=== PATIENT | male | born 1930 | race Caucasian/White ===

== ENCOUNTER 2018-01-07 10:03 | Inpatient (IN) | payer MEDICARE ==
[2018-01-07] MEDS ORDERED: ACETAMINOPHEN TAB 325 MG TAB PO PRN (12:21)
[2018-01-07] MEDS ORDERED: NALOXONE 0.4 MG/ML 1 ML VIAL IV PRN (12:21)
[2018-01-07 12:26] LABS: Glucose,Whole Blood 100 mg/dL (75-99)
[2018-01-07] MEDS: traMADol 50 MG TAB PO PRN ×2 (12:42→20:40)
--- NOTE | 2018-01-07 13:05 | XR ---
EXAMINATION TYPE: XR chest 1V portable DATE OF EXAM: 01/07/2018 COMPARISON: NONE HISTORY: Congestive heart failure and atrial fibrillation. Chest pain. TECHNIQUE: Single frontal view of the chest is obtained. FINDINGS: There is no focal air space opacity, pleural effusion, or pneumothorax seen. Skinfold is s een over the right lateral thorax as lung markings are seen peripheral to this. Mediastinal rotation to the right is evident as there is patient rotation/suboptimal positioning. There are overall low bruce ng volumes. The cardiac silhouette size is within normal limits. The osseous structures are intact . There is diffuse osseous demineralization present. IMPRESSION: No acute cardiopulmonary process. No evidence of decompensated congestive heart failure. Overall low lung volumes.
--- NOTE | 2018-01-07 13:10 | HP ---
HISTORY AND PHYSICAL CHIEF COMPLAINT: Chief complaints are elevated troponin and as well as a change in mental status. HISTORY OF PRESENT ILLNESS: This 87-year-old gentleman with the past medical history significant for dementia was evaluated in the outpatient setting, but recently the patient was sent to [facility], suspected for bowel obstruction from [facility], but in [facility] they suspected large prostate and catheter was inserted. Patient also had UTI. Subsequently patient was sent to [facility] for rehab , but from the rehab patient apparently fell and the patient was sent to ER and again the patient again sent back last night with features of UTI. The patient also had some change in mental status and complicated UTI with seizure-like activity according to the chart. Patient was evaluated, chronic cystitis was noted and troponin was found to be 0.024 and 0.133. EKG showed nonspecific ST-T changes and Dr. Flynn from [facility] discussed the case with us directly and the patient was directly transferred to [facility] for further evaluation and treatment. There is no history of any fever, rigors. No history of headache loss of consciousness, or seizures. PAST MEDICAL HISTORY: History of dementia, history of recent UTI and multiple medical issues as described above. MEDICATIONS: Medications prior to admission are: 1. Tylenol. 2. Acidophilus. 3. Aspirin. 4. Bactrim. 5. Bethanechol. 7. Famotidine. 8. Flomax. 9. Memantine. 10.Metoprolol. 11.Milk of magnesia. 12.Senna. Family history, social history and review of systems could not be taken because the patient is confused. PHYSICAL EXAMINATION: Pulse is 83, blood pressure is ntd, temperature 98.4, respirations 16, pulse ox is normal. HEENT: Conjunctivae normal. Oral mucosa moist. Neck is no jugular venous distention. No carotid bruit. No lymph node enlargement. CARDIOVASCULAR: S1, S2 muffled. No S3, no S4. RESPIRATORY: Breath sounds diminished at the bases. A few scattered rhonchi and crackles. Expiratory wheezing also present. ABDOMEN: Soft, nontender. No mass palpable. LEGS: No edema, no swelling. NERVOUS SYSTEM: Higher functions as mentioned earlier. Moves all 4 limbs. Patient is slightly combative and restless, confused, disoriented. LYMPHATICS: No lymphadenopathy of the neck, axillae or groin. SKIN: No ulcer, rash or bleeding. JOINTS: No active deforming arthropathy. LABS: Current labs are not available. ASSESSMENT: 1. Troponin 0.133, rule out acute non ST elevation myocardial infarction with nonspecific ST-T changes. 2. Complicated urinary tract infection. 3. History of benign prostatic hypertrophy and indwelling Chi catheter. 4. History of recent fall. 5. Change in mental status, acute on chronic metabolic encephalopathy. 6. Advanced dementia. 7. FULL CODE. RECOMMENDATIONS AND DISCUSSION: In this 87-year-old gentleman who presented with multiple complex medical issues , we will monitor the patient closely. Continue the current medications. Continue symptomatic treatment. I recommend broad-spectrum IV antibiotics. Obtain cultures. I would also recommend obtain the old records from elsewhere. The prognosis is guarded and Ativan p.r.n. Further recommendations to follow. MMODL / IJN: [id number] / MTDD
[2018-01-07 13:34] LABS: Basophils # (A) 0.1 k/uL (0-0.2); Basophils % (A) 1 %; Eosinophils # (A) 0.3 k/uL (0-0.7); Eosinophils % (A) 2 %; HCT 46.2 % (39.0-53.0); HGB 15.2 gm/dL (13.0-17.5); Lymphocytes # (A) 1.8 k/uL (1.0-4.8); Lymphocytes % (A) 12 %; MCH 29.4 pg (25.0-35.0); MCV 89.2 fL (80.0-100.0); Monocytes # (A) 0.9 k/uL (0-1.0); Monocytes % (A) 6 %; Neutrophils # (A) 11.6 k/uL (1.3-7.7); Neutrophils % (A) 77 %; Platelet Count 279 k/uL (150-450); RBC 5.18 m/uL (4.30-5.90); RDW 14.2 % (11.5-15.5)
[2018-01-07 13:43] LABS: Albumin 3.6 g/dL (3.5-5.0); Calcium 9.5 mg/dL (8.4-10.2); Magnesium 1.9 mg/dL (1.6-2.3); Phosphorus 2.5 mg/dL (2.5-4.5); Potassium 4.2 mmol/L (3.5-5.1); Total Bilirubin 0.4 mg/dL (0.2-1.3); Total Protein 6.4 g/dL (6.3-8.2)
[2018-01-07] MEDS ORDERED: MORPHINE SULFATE 2 MG/ML SYRINGE IVP ONE (13:48)
[2018-01-07] MEDS ORDERED: LORazepam 2 MG/ML INJ IV PRN (14:25)
[2018-01-07] MEDS ORDERED: LORazepam 0.5 MG TAB PO PRN (14:25)
[2018-01-07] MEDS: 1: MVI, ADULT NO.4 WITH VIT K 10 ML, THIAMINE 100 MG, FOLIC ACID 1 MG in SODIUM CHLORIDE IV SCH ×4 (15:05)
[2018-01-07] MEDS: cefTRIAXone IN SWFI 1,000 MG/10 ML SYRINGE IVP SCH (15:07)
[2018-01-07] MEDS: HEPARIN SODIUM,PORCINE 5,000 UNIT/ML 1 ML VIAL SQ SCH ×2 (15:07→20:41)
[2018-01-07 15:45] LABS: Creatine Kinase MB 3.1 ng/mL (0.0-2.4); Troponin I 0.275 ng/mL (0.000-0.034)
[2018-01-07] MEDS ORDERED: MORPHINE SULFATE 2 MG/ML SYRINGE IVP PRN (15:45)
--- NOTE | 2018-01-07 16:52 | P.GSCN ---
History of Present Illness Consult date: 01/07/18 Reason for Consult: Urinary retention History of present illness: The patient is an 87-year-old male with Noted seen to pull on his catheter periodicallyAlzheimer's disease who was transferred from the [facility] emergency room due to possible sepsis related to the patient's catheter. The history is from a discussion with the patient's family and his nurse. The patient is unable to provide any meaningful history. The patient developed a bowel obstruction apparently related to fecal impaction in early December and was initially treated at [facility]. He developed urinary retention at that time and a catheter was inserted. He was eventually discharged to the [facility] rehab facility with a catheter in place and has he remained unable to void. The catheter has been changed at least once or twice since then. He has been pulling on his catheter periodically. Sometime over the last 24 hours he developed vomiting and what is described as seizure-like activity. He had a low-grade fever and was taken to the emergency room where he was evaluated and his catheter was changed. He was transferred to this facility for further evaluation. His catheter apparently was not draining well when he arrived here and was removed. Since then he is had intermittent suprapubic discomfort and no urine output. The patient has no previous history of urinary retention. The patient's said he would normally voids every 3-4 hours during the day and only occasionally at night. He had previously been evaluated by Dr. Grover due to an elevated PSA which was related to BPH. TRUS of the prostate in 2010 showed a prostate volume of 95 mL. He has not been seen back since 2011. The patient's says that he normally has a bowel movement daily and currently is having a bowel movement every 2-3 days. She believes that a portion of this is related to a reduced intake of food. He is currently on a stool softener. Review of Systems ROS unobtainable: due to mental status Past Medical History Past Medical History: Dementia Additional Past Medical History / Comment(s): Pt recently admitted to [facility] with a bowel obstruction per spouse and was then told he had prostrate enlargement/cystitis/urinary retention and discharged to [facility] with indwelling dobson and was currently on Bactrim for UTI. Spouse states other than this, pt has been healthy except for his dementia and hx of constipation. History of Any Multi-Drug Resistant Organisms: None Reported Additional Past Surgical History / Comment(s): Spouse states pt has never had any surgery Past Anesthesia/Blood Transfusion Reactions: Unable to Obtain Additional Past Anesthesia/Blood Transfusion Reaction / Comm: Pt has never had surgery. Additional Psychological History / Comment(s): Pt has dementia. He is currently staying at [facility] for rehab after a hospitalization at [facility]. He is up walking with a walker. 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 He has an indwelling dobson d/t urinary retention. He can sometimes feed himself with alot of redirection. No difficulty swallowing. Recently increased diet to a soft diet and is tolerating that well. Smoking Status: Never smoker Past Alcohol Use History: None Reported Past Drug Use History: None Reported - Past Family History Father Family Medical History: Diabetes Mellitus Mother Family Medical History: No Reported History Medications and Allergies Home Medications Medication Instructions Recorded Confirmed Type Acetaminophen Tab [Tylenol Tab] 650 mg PO Q4H PRN 01/07/18 01/07/18 History Aspirin EC [Ecotrin Low Dose] 81 mg PO DAILY@0700 01/07/18 01/07/18 History Bethanechol [Urecholine] 25 mg PO TID@0700,1200,1700 01/07/18 01/07/18 History Donepezil [Aricept] 5 mg PO HS@199901/07/18 01/07/18 History Famotidine [Pepcid] 20 mg PO BID@0700,1700 01/07/18 01/07/18 History Lactobacillus Acidophilus 1 tab PO BID 01/07/18 01/07/18 History [Acidophilus] Mag Hydrox/Al Hydrox/Simeth 30 ml PO Q6H PRN 01/07/18 01/07/18 History [Maalox] Magnesium Hydroxide [Milk of 2,400 mg PO DAILY PRN 01/07/18 01/07/18 History Magnesia] Memantine [Namenda] 10 mg PO DAILY@2100 01/07/18 01/07/18 History Metoprolol Tartrate [Lopressor] 25 mg PO BID@0700,1700 01/07/18 01/07/18 History Sennosides-Docusate Sodium 1 tab PO DAILY@0800 01/07/18 01/07/18 History [Senokot-S] Sulfamethox-Tmp 800-160Mg [Bactrim 1 tab PO Q12HR 01/07/18 01/07/18 History DS 800-160 mg] Tamsulosin HCl [Flomax] 0.4 mg PO DAILY@0700 01/07/18 01/07/18 History Allergies Allergy/AdvReac Type Severity Reaction Status Date / Time No Known Allergies Allergy Verified 01/07/18 13:40 Surgical - Exam Vital Signs Temp Pulse Resp BP Pulse Ox 96.3 F L 105 H 18 147/87 95 01/07/18 11:20 01/07/18 11:20 01/07/18 11:20 01/07/18 11:20 01/07/18 11:20 - General well developed, well nourished, moderate pain - Respiratory normal respiratory effort - Abdomen Abdomen: tender (Suprapubic region) - Genitourinary normal penis with no external lesions, testicles non-tender - Psychiatric no oriented to time, no oriented to place, no speech is normal, no memory intact Results - Labs 01/07/18 13:20 01/07/18 13:20 Abnormal Lab Results - Last 24 Hours (Table) 01/07/18 01/07/18 01/07/18 Range/Units 12:05 13:20 13:20 WBC 15.0 H (3.8-10.6) k/uL Neutrophils # 11.6 H (1.3-7.7) k/uL Chloride 109 H (98-107) mmol/L Carbon Dioxide 21 L (22-30) mmol/L Glucose 118 H (74-99) mg/dL POC Glucose (mg/dL) 100 H (75-99) mg/dL CK-MB (CK-2) (0.0-2.4) ng/mL Troponin I (0.000-0.034) ng/mL 01/07/18 Range/Units 13:20 WBC (3.8-10.6) k/uL Neutrophils # (1.3-7.7) k/uL Chloride (98-107) mmol/L Carbon Dioxide (22-30) mmol/L Glucose (74-99) mg/dL POC Glucose (mg/dL) (75-99) mg/dL CK-MB (CK-2) 3.1 H* (0.0-2.4) ng/mL Troponin I 0.275 H* (0.000-0.034) ng/mL Diabetes panel 01/07/18 Range/Units 13:20 Sodium 144 (137-145) mmol/L Potassium 4.2 (3.5-5.1) mmol/L Chloride 109 H (98-107) mmol/L Carbon Dioxide 21 L (22-30) mmol/L BUN 16 (9-20) mg/dL Creatinine 1.05 (0.66-1.25) mg/dL Glucose 118 H (74-99) mg/dL Calcium 9.5 (8.4-10.2) mg/dL AST 30 (17-59) U/L ALT 38 (21-72) U/L Alkaline Phosphatase 87 (38-126) U/L Total Protein 6.4 (6.3-8.2) g/dL Albumin 3.6 (3.5-5.0) g/dL Calcium panel 01/07/18 Range/Units 13:20 Calcium 9.5 (8.4-10.2) mg/dL Phosphorus 2.5 (2.5-4.5) mg/dL Albumin 3.6 (3.5-5.0) g/dL Pituitary panel 01/07/18 Range/Units 13:20 Sodium 144 (137-145) mmol/L Potassium 4.2 (3.5-5.1) mmol/L Chloride 109 H (98-107) mmol/L Carbon Dioxide 21 L (22-30) mmol/L BUN 16 (9-20) mg/dL Creatinine 1.05 (0.66-1.25) mg/dL Glucose 118 H (74-99) mg/dL Calcium 9.5 (8.4-10.2) mg/dL Adrenal panel 01/07/18 Range/Units 13:20 Sodium 144 (137-145) mmol/L Potassium 4.2 (3.5-5.1) mmol/L Chloride 109 H (98-107) mmol/L Carbon Dioxide 21 L (22-30) mmol/L BUN 16 (9-20) mg/dL Creatinine 1.05 (0.66-1.25) mg/dL Glucose 118 H (74-99) mg/dL Calcium 9.5 (8.4-10.2) mg/dL Total Bilirubin 0.4 (0.2-1.3) mg/dL AST 30 (17-59) U/L ALT 38 (21-72) U/L Alkaline Phosphatase 87 (38-126) U/L Total Protein 6.4 (6.3-8.2) g/dL Albumin 3.6 (3.5-5.0) g/dL Assessment and Plan (1) Urinary retention due to benign prostatic hyperplasia Narrative/Plan: The patient's urinary retention is most likely in part related to his large prostate although constipation one month ago was probably also a contributory factor. His catheter was not draining properly when he was admitted to this facility. I inserted a 16-German coud catheter without difficulty and a large amount of clear urine has drained. His suprapubic discomfort is greatly diminished. It's unclear whether the patient was actually septic as his urine is relatively clear. His agitation may have been from a distended bladder. The patient will be continued on antibiotics pending results of blood and urine cultures. Dr. Grover has seen the patient in the past and we'll follow-up with him later in the week. Current Visit: Yes Status: Acute Code(s): N40.1 - BENIGN PROSTATIC HYPERPLASIA WITH LOWER URINARY TRACT SYMP; R33.8 - OTHER RETENTION OF URINE SNOMED Code(s): 521343389
[2018-01-07 17:03] LABS: Appearance,Urine Cloudy (Clear); Bilirubin,Urine Negative (Negative); Blood,Urine Large (Negative); Color,Urine Red; Glucose,Urine (UA) Trace (Negative); Ketones,Urine Trace (Negative); Leukocyte Esterase,Urine Large (Negative); Mucus,Urine Many /hpf; Nitrite,Urine Negative (Negative); Protein,Urine 1+ (Negative); RBC,Urine >182 /hpf (0-5); Specific Gravity,Urine 1.019 (1.001-1.035); Urobilinogen,Urine <2.0 mg/dL (<2.0); WBC,Urine >182 /hpf (0-5)
--- NOTE | 2018-01-07 18:01 | CONS ---
CONSULTATION This is an 87-year-old gentleman with a significant history of dementia who was transferred here from [facility]. Apparently patient was in [facility] recently for bowel obstruction and also had some prostate issues and had a catheter placed. There was a question of UTI and he was sent to the [facility] for rehab, but then he fell in rehab, was sent to the emergency room, was complaining of some chest pain and jerking activity all over, raising the possibility of seizures. There was a question of UTI and borderline troponin elevation of 0.02 and 0.13, and therefore he was transferred here. Patient is unable to give me any meaningful history. There is a lot of family around. Apparently the catheter was taken out from his bladder and he is complaining of some pain in this region. Denies chest pain. He is hemodynamically stable. Blood pressure is 140/70. Pulse rate is about 90 per minute. EKG revealed sinus mechanism, LVH by voltage criteria without acute changes. PAST MEDICAL HISTORY: 1. Dementia. 2. History of UTI. 3. History of some metabolic encephalopathy. 4. Benign prostatic hypertrophy. 5. Possible history of hypertension. MEDICATIONS PRIOR TO ADMISSION: 1. Aspirin. 2. Bactrim. 3. Tylenol. 4. Flomax. 5. Metoprolol. 6. Milk of Magnesia. 7. Senna. PHYSICAL EXAMINATION: Blood pressure is 140/70. Pulse rate is about 93 per minute, regular. HEENT: Unremarkable. Fundus was not examined by me. NECK: Supple. No JVD. I do not hear a carotid bruit. Heart exam reveals S1, S2. Short systolic murmur is noted. Lungs reveal diminished air entry. Abdomen is soft. Lower extremities reveal diminished pulses. No edema. Central nervous system assessment was not performed. Patient is restless, moving all 4 extremities, but a detailed exam was not performed. Apparently patient was seen by a roof bolter in [facility] by and his nurse practitioner, and his LV function was apparently normal. IMPRESSION: 1. Borderline troponin elevation, not suggestive of myocardial infarction. 2. Dementia. 3. Urinary tract infection. 4. Benign prostatic hypertrophy. RECOMMENDATIONS: I am recommending that we add a beta jarret to his regimen. No other intervention is necessary. Apparently the echo is normal. Conservative management is advised. I will see the patient as needed. Thank you very much for the consult. GUTIERREZ / LATHAN: [id number] /
[2018-01-07] MEDS: risperiDONE 0.25 MG TAB PO SCH (20:39)
[2018-01-07] MEDS: METOPROLOL TARTRATE 50 MG TAB PO SCH (20:40)
[2018-01-07 23:01] LABS: Creatine Kinase MB 3.5 ng/mL (0.0-2.4); Troponin I 0.633 ng/mL (0.000-0.034)
[2018-01-07] MEDS ORDERED: SODIUM CHLORIDE 0.9% 500 ML IV ONE (23:08)
[2018-01-08] MEDS ORDERED: NOREPINEPHRIN 4 MG-0.9% NS PMX 4 MG/250 ML ML IV ONE (00:56)
[2018-01-08 01:10] LABS: Glucose,Whole Blood 132 mg/dL (75-99)
[2018-01-08] MEDS ORDERED: SODIUM CHLORIDE 0.9% 3,000 ML IV ONE (01:28)
[2018-01-08] MEDS ORDERED: NOREPINEPHRIN 4 MG-0.9% NS PMX 4 MG/250 ML ML IV SCH (01:30)
[2018-01-08 05:20] LABS: Basophils # (A) 0.1 k/uL (0-0.2); Basophils % (A) 1 %; Eosinophils # (A) 0.4 k/uL (0-0.7); Eosinophils % (A) 4 %; HGB 13.9 gm/dL (13.0-17.5); Hypochromasia Marked; Lymphocytes % (A) 25 %; MCH 30.2 pg (25.0-35.0); MCHC 31.5 g/dL (31.0-37.0); Mean Platelet Volume 7.2; Monocytes # (A) 1.1 k/uL (0-1.0); Monocytes % (A) 9 %; Neutrophils # (A) 6.8 k/uL (1.3-7.7); Neutrophils % (A) 57 %; Platelet Count 270 k/uL (150-450); RBC 4.59 m/uL (4.30-5.90); RDW 14.1 % (11.5-15.5)
[2018-01-08 05:22] LABS: MCV 95.9 fL (80.0-100.0)
[2018-01-08 05:37] LABS: Anion Gap 11 mmol/L; Blood Urea Nitrogen 14 mg/dL (9-20); Calcium 8.3 mg/dL (8.4-10.2); Carbon Dioxide 20 mmol/L (22-30); Chloride 113 mmol/L (98-107); Glucose 116 mg/dL (74-99); Magnesium 1.9 mg/dL (1.6-2.3); Phosphorus 3.3 mg/dL (2.5-4.5); Sodium 144 mmol/L (137-145)
--- NOTE | 2018-01-08 07:15 | CT ---
EXAM: CT Head Without Intravenous Contrast CLINICAL HISTORY: ITS.REASON CT Reason: fall TECHNIQUE: Axial computed tomography images of the head/brain without intravenous contrast. DLP is 1144.7 mGy-cm. This CT exam was performed using one or more of the following dose reduction techniques: automated exposure control, adjustment of the mA and/or kV according to patient size, and/or use of iterative reconstruction technique. COMPARISON: None. FINDINGS: Brain: Moderate global volume loss, more prominent symmetrically in the parietal and temporal lobes. No evidence of acute intracranial hemorrhage. No mass effect or herniation. Ventricles: Unremarkable. No ventriculomegaly. Bones/joints: No acute fracture. Soft tissues: Unremarkable. Sinuses: Unremarkable as visualized. Mastoid air cells: Unremarkable as visualized. IMPRESSION: No evidence of acute intracranial hemorrhage or skull fracture. Moderate global volume loss, more prominent symmetrically in the parietal and temporal lobes.
[2018-01-08] MEDS: cefTRIAXone IN SWFI 1,000 MG/10 ML SYRINGE IVP SCH (09:57)
[2018-01-08] MEDS: HEPARIN SODIUM,PORCINE 5,000 UNIT/ML 1 ML VIAL SQ SCH ×2 (09:57→20:52)
[2018-01-08] MEDS: PANTOPRAZOLE 40 MG TABLET PO SCH (09:58)
--- NOTE | 2018-01-08 10:37 | P.CNPUL ---
History of Present Illness Consult date: 01/08/18 Requesting physician: Roselia Vo Reason for consult: other (Hypertension) Chief complaint: Altered mental status History of present illness: This is an 87-year-old white male with history of dementia, chronic and recurrent urinary tract infection, transferred from [facility] due to possible sepsis and urinary tract infection. Patient cannot give any history, patient has profound dementia, however most of the information was obtained from the chart. Back in December, patient developed a bowel obstruction, and he was treated at [facility]. He also developed while inpatient urinary retention, and a Dobson catheter was placed. Patient was discharged to [facility] rehab facility, continued to have catheter in place, and he could not void on his own. His catheter was being changed periodically. When he 4 hours prior to admission, patient developed vomiting and what seems to be a seizure-like activity. He also had a low-grade fever, seen at [facility], and arrangements were made for him to be transferred to [facility]. Patient was a direct transfer, and while on the floor last night, patient became hypotensive, required fluid boluses, and he was transferred to the ICU. I was called about the patient, recommended norepinephrine to be started after a liter of fluid bolus, patient remains on norepinephrine for almost 8 hours, and this was discontinued early this morning. His urinalysis is suspicious for urinary tract infection, and considering the presentation I believe this is sepsis, septic shock secondary to urinary tract infection. I saw the patient this morning, he is hemodynamically stable, afebrile, in no form of respiratory distress. Cultures are pending including urine and blood. WBC count is 12 his electrolytes are normal renal profile is normal slightly elevated troponin is noted, patient was already seen by cardiology, felt that the patient may have had a non-ST elevation myocardial infarction, and recommended low-dose beta blockers, did not recommend any other intervention. Chest x-ray on admission was relatively unremarkable and no evidence of pneumonia and no evidence of congestive heart failure. Patient fell out of bed early this morning, and a CT of the brain was done, no significant abnormality was noted. Review of Systems ROS unobtainable: due to mental status (Patient has profound Alzheimer's disease , has no clue where he is or how he ended up in our facility.) Past Medical History Past Medical History: Dementia Additional Past Medical History / Comment(s): Pt recently admitted to [facility] with a bowel obstruction per spouse and was then told he had prostrate enlargement/cystitis/urinary retention and discharged to [facility] with indwelling dobson and was currently on Bactrim for UTI. Spouse states other than this, pt has been healthy except for his dementia and hx of constipation. History of Any Multi-Drug Resistant Organisms: None Reported Additional Past Surgical History / Comment(s): Spouse states pt has never had any surgery Past Anesthesia/Blood Transfusion Reactions: Unable to Obtain Additional Past Anesthesia/Blood Transfusion Reaction / Comment(s): Pt has never had surgery. Additional Psychological History / Comment(s): Pt has dementia. He is currently staying at [facility] for rehab after a hospitalization at [facility]. He is up walking with a walker. 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 He has an indwelling dobson d/t urinary retention. He can sometimes feed himself with alot of redirection. No difficulty swallowing. Recently increased diet to a soft diet and is tolerating that well. Smoking Status: Never smoker Past Alcohol Use History: None Reported Past Drug Use History: None Reported - Past Family History Father Family Medical History: Diabetes Mellitus Mother Family Medical History: No Reported History Medications and Allergies Home Medications Medication Instructions Recorded Confirmed Type Acetaminophen Tab [Tylenol Tab] 650 mg PO Q4H PRN 01/07/18 01/07/18 History Aspirin EC [Ecotrin Low Dose] 81 mg PO DAILY@0700 01/07/18 01/07/18 History Bethanechol [Urecholine] 25 mg PO TID@0700,1200,1700 01/07/18 01/07/18 History Donepezil [Aricept] 5 mg PO HS@2000 01/07/18 01/07/18 History Famotidine [Pepcid] 20 mg PO BID@0700,1700 01/07/18 01/07/18 History Lactobacillus Acidophilus 1 tab PO BID 01/07/18 01/07/18 History [Acidophilus] Mag Hydrox/Al Hydrox/Simeth 30 ml PO Q6H PRN 01/07/18 01/07/18 History [Maalox] Magnesium Hydroxide [Milk of 2,400 mg PO DAILY PRN 01/07/18 01/07/18 History Magnesia] Memantine [Namenda] 10 mg PO DAILY@2100 01/07/18 01/07/18 History Metoprolol Tartrate [Lopressor] 25 mg PO BID@0700,1700 01/07/18 01/07/18 History Sennosides-Docusate Sodium 1 tab PO DAILY@0800 01/07/18 01/07/18 History [Senokot-S] Sulfamethox-Tmp 800-160Mg [Bactrim 1 tab PO Q12HR 01/07/18 01/07/18 History DS 800-160 mg] Tamsulosin HCl [Flomax] 0.4 mg PO DAILY@0700 01/07/18 01/07/18 History Allergies Allergy/AdvReac Type Severity Reaction Status Date / Time No Known Allergies Allergy Verified 01/07/18 13:40 Physical Exam Vitals: Vital Signs Temp Pulse Pulse Pulse Resp BP BP 01/08/18 06:00 72 18 121/77 01/08/18 05:30 63 11 L 107/65 01/08/18 05:00 61 10 L 121/71 01/08/18 04:30 59 L 16 107/70 01/08/18 04:00 98 F 64 86 70 27 H 118/62 01/08/18 03:30 61 16 90/54 01/08/18 03:00 61 14 97/56 01/08/18 02:30 61 12 111/66 01/08/18 02:00 62 21 78/52 01/08/18 01:30 98.1 F 65 19 84/48 01/07/18 23:57 89/50 01/07/18 23:12 70 75/43 01/07/18 22:27 90/54 01/07/18 20:00 97.1 F L 88 18 123/70 01/07/18 16:00 98 F 86 16 138/84 01/07/18 12:21 01/07/18 11:20 96.3 F L 105 H 18 147/87 Pulse Ox 01/08/18 06:00 96 01/08/18 05:30 98 01/08/18 05:00 98 01/08/18 04:30 96 01/08/18 04:00 97 01/08/18 03:30 95 01/08/18 03:00 100 06/07/18 02:30 96 01/08/18 02:00 95 01/08/18 01:30 93 L 01/07/18 23:57 01/07/18 23:12 01/07/18 22:27 01/07/18 20:00 94 L 01/07/18 16:00 96 01/07/18 12:21 96 01/07/18 11:20 95 Intake and Output 01/07/18 01/08/18 01/08/18 22:59 06:59 14:59 Intake Total 520 566.50 Output Total 500 150 Balance 20 416.50 Intake: IV 400 450 Mvi, Adult No.4 with Vit 400 250 K 10 ml Thiamine 100 mg Folic Acid 1 mg In Sodium Chloride 0.9% 1,000 ml @ 50 mls/hr IV .BY DURATION VERONICA Rx#: [id number] Sodium Chloride 0.9% 1, 200 000 ml @ 100 mls/hr IV . BY DURATION VERONICA Rx#: [id number] Intake, IV Titration 116.50 Amount Norepinephrin 4 mg-0.9% 116.50 Ns Pmx 4 mg In 250 ml @ Titrate IV .Q0M VERONICA Rx#: [id number] Oral 120 Output: Urine 500 150 Other: Voiding Method Indwelling Catheter Indwelling Catheter # Bowel Movements 1 Physical Exam: Revealed an 87-year-old white male, in no form of respiratory distress. Head: Atraumatic, normocephalic. HEENT:[Neck is supple.] [No neck masses.] [No thyromegaly.] [No JVD.]. PERRLA, EOMI, no icterus. Moist mucous membranes. Chest: [Clear throughout, no crackles, no rhonchi, no wheezes.] Cardiac Exam: [Normal S1 and S2, no S3 gallop, no murmur.] Abdomen: [Soft, nontender, no megaly, no rebound, no guarding, normal bowel sounds.] Extremities: [No clubbing, no edema, no cyanosis.] Neurological Exam: Confused, has profound dementia, otherwise no other focal neurologic deficit. Lymphatics: No lymphadenopathy. Musculoskeletal normal range of motion, no deformities. Results - Laboratory Findings CBC and BMP: 01/08/18 04:54 01/08/18 04:54 Abnormal lab findings: Abnormal Labs 01/07/18 01/07/18 01/07/18 12:05 13:20 13:20 WBC 15.0 H Neutrophils # 11.6 H Monocytes # Chloride 109 H Carbon Dioxide 21 L Glucose 118 H POC Glucose (mg/dL) 100 H Calcium CK-MB (CK-2) Troponin I Urine Protein Urine Glucose (UA) Urine Ketones Urine Blood Ur Leukocyte Esterase Urine RBC Urine WBC Urine WBC Clumps Urine Mucus 01/07/18 01/07/18 01/07/18 13:20 16:50 22:13 WBC Neutrophils # Monocytes # Chloride Carbon Dioxide Glucose POC Glucose (mg/dL) Calcium CK-MB (CK-2) 3.1 H* 3.5 H* Troponin I 0.275 H* 0.633 H* Urine Protein 1+ H Urine Glucose (UA) Trace H Urine Ketones Trace H Urine Blood Large H Ur Leukocyte Esterase Large H Urine RBC >182 H Urine WBC >182 H Urine WBC Clumps Many H Urine Mucus Many H 01/08/18 01/08/18 01/08/18 01:08 04:54 04:54 WBC 12.0 H Neutrophils # Monocytes # 1.1 H Chloride 113 H Carbon Dioxide 20 L Glucose 116 H POC Glucose (mg/dL) 132 H Calcium 8.3 L CK-MB (CK-2) Troponin I Urine Protein Urine Glucose (UA) Urine Ketones Urine Blood Ur Leukocyte Esterase Urine RBC Urine WBC Urine WBC Clumps Urine Mucus 01/08/18 01/08/18 04:54 06:45 WBC Neutrophils # Monocytes # Chloride Carbon Dioxide Glucose POC Glucose (mg/dL) Calcium CK-MB (CK-2) 3.0 H* Troponin I 0.319 H* Urine Protein Urine Glucose (UA) Urine Ketones Urine Blood Ur Leukocyte Esterase Urine RBC Urine WBC Urine WBC Clumps Urine Mucus - Diagnostic Findings Chest x-ray: image reviewed (Evidence of active disease) Assessment and Plan Assessment: Impression: 1 acute hypotension secondary to sepsis and septic shock secondary to urinary tract infection. 2 acute urinary tract infection 3 acute non-ST elevation myocardial infarction, could also be contributing to his hypotension. 4 advanced senile dementia 5 enlarged prostate and chronic urinary retention requiring Dobson catheter placement. 6 questionable seizure disorder as noted in the HPI. Patient is being followed by neurology. EEG is pending. Recommendation: Continue present supportive care measures, fluids, antibiotics, GI and DVT prophylaxis. Blood cultures are pending, urine cultures are pending , antibiotics will be readjusted based on the final culture. Time with Patient: Greater than 30
--- NOTE | 2018-01-08 11:14 | PN ---
PROGRESS NOTE Mr. Mcgraw remains in sinus rhythm today. He came in because of some sepsis and UTI, unresponsiveness, and also pain because of a bladder catheter. There was a question of Naila nick, but on reviewing the rhythm strips appears to be sinus tachycardia. He became hypotensive after 50 mg dose of Lopressor, I am reducing it to 12.5 mg t.i.d. with parameters . He is hemodynamically stable, comfortable resting without pain. S1-S2 heard normally, short systolic murmur noted. Lungs are clear. Abdomen is soft. Lower extremities reveal diminished pulses. Plan is to continue current medications and see how he does. MMODL / IJN: [id number] / MTDD
--- NOTE | 2018-01-08 12:53 | CONS ---
CONSULTATION DATE OF SERVICE: 01/07/2018 CHIEF COMPLAINT: Altered mental status. HISTORY OF PRESENT ILLNESS: Mr. Mcgraw is a pleasant 87-year-old, male, who is being evaluated by the neurology service today on 01/07/2018 per the request of Dr. Vo for altered mental status. The patient was brought into [facility] with complaints of change in mental status and complicated urinary tract infection. The patient is a poor historian. The history was obtained from the chart and the nursing staff. The patient was initially seen at [facility] for suspected bowel obstruction. His workup revealed a large prostate gland and a urinary tract infection. He was then sent to rehab where he apparently had a fall and questionable seizure-like activity. According to nursing staff, the patient was having tremors with no altered consciousness during this episode. A CBC was done which did show leukocytosis at 15.0. His comprehensive metabolic profile was normal. His urinalysis showed greater than 182 WBCs and large leukocyte esterase. There was also hematuria seen. His cardiac enzymes showed elevated troponin at 0.275 and elevated CK-MB at 3.1. His CPK was normal. At the time of my evaluation, he is lying in his bed and appears to be in no acute distress. He is quite disoriented but the patient does have history of advanced dementia according to the chart and the nursing staff. His exact baseline is unknown. PAST MEDICAL HISTORY: Dementia, recurrent urinary tract infections, gastroesophageal reflux disease, prostate disorder. SOCIAL HISTORY: There is no history of any tobacco, alcohol, or drug use. FAMILY HISTORY: Noncontributory. HOME MEDICATIONS: Reviewed in the chart. ALLERGIES: No known drug allergies. REVIEW OF SYSTEM: Per history of present illness and otherwise negative. PHYSICAL EXAM: Vital signs show a temperature of 96.3, pulse 105, respiration 18, blood pressure 147/87. GENERAL APPEARANCE: The patient is a well-developed, elderly male, who appears to be in no acute distress. HEENT: Normocephalic, atraumatic, no facial asymmetry is seen. NECK: Supple with no masses felt. CARDIOVASCULAR: Regular rate and rhythm. ABDOMEN: Nontender, nondistended. EXTREMITIES: Showed trace edema with no clubbing seen. NEUROLOGICAL EXAM: The patient is awake, but is disoriented to person, place, and time. He does follow simple commands. No obvious lateralizing weakness is seen but he does appear to have generalized weakness. Sensory exam was difficult to assess due to his cognitive status. Mild postural tremors are seen. No seizure-like activity is noticed. No obvious facial asymmetry is seen on cranial nerve testing. IMPRESSION: 1. Altered mental status. 2. Acute on top of chronic encephalopathy. 3. Advanced dementia. 4. Questionable seizure. 5. Urinary tract infection. RECOMMENDATION: The patient does have history of advanced dementia and is quite disoriented. His exact baseline is unknown. His current urinary tract infection is obviously causing an acute on top of chronic encephalopathy. He does not have any lateralizing symptoms on my examination. Continue antibiotic therapy. I do recommend an EEG which has been ordered. Cardiology has been consulted for his elevated cardiac enzymes. Prognosis is guarded. I will continue to follow with you. Further recommendations to follow. Thank you for allowing me to participate in the care of your patient. If you have any questions, please feel free to contact me. GUTIERREZ / ABNER: [id number] /
--- NOTE | 2018-01-08 13:05 | ECHOF ---
Referral Reason:LV function MEASUREMENTS -------- HEIGHT: 152.4 cm WEIGHT: 68.0 kg BP: IVSd: 1.3 cm (0.6 - 1.1) LVIDd: 4.2 cm (3.9 - 5.3) LVPWd: 1.5 cm (0.6 - 1.1) IVSs: 1.6 cm LVIDs: 2.6 cm LVPWs: 1.1 cm Ao Diam: 3.5 cm (2.0 - 3.7) LA Diam: 4.2 cm (2.7 - 3.8) MV EXCURSION: 27.202 mm (> 18.000) MV EF SLOPE: 151 mm/s (70 - 150) EPSS: 0.3 cm MV E Osmany: 0.64 m/s MV DecT: 175 ms MV A Osmany: 0.67 m/s MV E/A Ratio: 0.97 RAP: 5.00 mmHg RVSP: 19.81 mmHg FINDINGS -------- Sinus rhythm. This was a technically adequate study. The left ventricular size is normal. There is mild concentric left ventricular hypertrophy. Overa ll left ventricular systolic function is low-normal with, an EF between 50 - 55 %. The right ventricle is normal in size. The left atrial size is normal. The right atrial size is normal. There is mild aortic valve sclerosis. Trace to mild aortic regurgitation. Mild mitral annular calcification present. Mild mitral regurgitation is present. Mild tricuspid regurgitation present. There is no evidence of pulmonary hypertension. The right v entricular systolic pressure, as measured by Doppler, is 19.81mmHg. The pulmonic valve was not well visualized. The aortic root size is normal. Echo free space represents a pericardial fat pad. CONCLUSIONS -------- 1. Sinus rhythm. 2. The left ventricular size is normal. 3. There is mild concentric left ventricular hypertrophy. 4. Overall left ventricular systolic function is low-normal with, an EF between 50 - 55 %. 5. The right ventricle is normal in size. 6. The left atrial size is normal. 7. The right atrial size is normal. 8. There is mild aortic valve sclerosis. 9. Trace to mild aortic regurgitation. 10. Mild mitral annular calcification present. 11. Mild mitral regurgitation is present. 12. Mild tricuspid regurgitation present. 13. There is no evidence of pulmonary hypertension. 14. The right ventricular systolic pressure, as measured by Doppler, is 19.81mmHg. 15. The pulmonic valve was not well visualized. 16. The aortic root size is normal. 17. Echo free space represents a pericardial fat pad. HEARING CARE PRACTITIONER: Michelle Jose RDCS
[2018-01-08] MEDS ORDERED: MAGNESIUM HYDROXIDE 2,400 MG/10 ML CUP PO PRN (14:10)
[2018-01-08] MEDS ORDERED: MAG HYDROX/AL HYDROX/SIMETH 30 ML CUP PO PRN (14:10)
--- NOTE | 2018-01-08 14:23 | EEG ---
ELECTROENCEPHALOGRAM REPORT DATE OF SERVICE: 01/08/2018 REASON FOR TESTING: Altered mental status. DESCRIPTION OF THE PROCEDURE: This EEG was performed using a 21 channel digital electroencephalograph, following international 10-20 system. DESCRIPTION OF THE RECORDING: From the beginning of the tracing, and with the patient's eyes closed, the background rhythm was mostly consisting of 6-7 Hz theta frequency in the posterior occipital leads. No obvious asymmetry is seen. Occasional movement and muscle artifacts are seen. Photic stimulation was performed with no driving response seen. No pathological waves were elicited. Hyperventilation was not performed. The patient remains awake throughout the tracing. No epileptiform discharges were seen. His EKG lead showed an irregular rhythm with a normal rate. INTERPRETATION: This awake EEG is abnormal due to the presence of generalized slowing of the background rhythm, mostly in the theta range. This is consistent with moderate encephalopathy. No epileptiform discharges were seen. The absence of epileptiform discharges does not rule out the diagnosis of epilepsy; therefore, clinical correlation is recommended. Of note, his EKG lead showed an irregularly irregular rhythm. MMROSIOL / LATHAN: [id number] /
--- NOTE | 2018-01-08 14:44 | CDI ---
Last Revision, July 2017 Documentation Clarification Form Date: 01/08/18 From: Shabnam Aceves RN Admit Date: 01/07/2018 11:49:00 AM Patient Name: Ton Mcgraw Visit Number: [id number] ATTENTION: The Clinical Documentation Specialists (CDI) and [facility] Coding Staff appreciate your assistance in clarifying documentation. Please respond to the clarification below the line at the bottom and electronically sign. The CDI & [facility] Coding staff will review the response and follow-up if needed. Please note: Queries are made part of the Legal Health Record. If you have any questions, please contact the author of this message via ITS. Dr. Roselia Vo, A diagnosis of UTI has been documented in the chart on 01/07 & 01/08. History/Risk factors: dementia, recurring UTI, falls, seizure like activity, chronic cystitis, BPH, urinary retention Clinical Indicators: Urinalysis:protein 1+, blood large, ketones trace, leukocyte esterase large, RBC >182, WBC >182, WBC clumps many, mucus many Urine culture: in progress Lab results: on admission WBC 15.0, NEUTRO 11.6, CHL 109, C02 21 Treatment: IVP Rocephin In your professional opinion, can you please clarify the etiology of the UTI, if known? Chi catheter UTI not related to catheter/urostomy Other condition, please specify Unable to determine If an infective organism is present, please specify cause and effect relationship if applicable. Please continue to document in your progress notes and discharge summary in order to capture severity of illness and risk of mortality. Include clinical findings that support your diagnosis. Chi catheter MTDD
--- NOTE | 2018-01-08 15:05 | PN ---
PROGRESS NOTE DATE OF SERVICE: 01/08/2018 This 87-year-old gentleman who was admitted with change in mental status, elevated troponin also. The patient also had a complicated UTI and patient had some difficulty micturition. Patient had indwelling Chi catheter for BPH inserted in [facility] in [place], but the patient apparently is tugging on it and yesterday had difficulties re- inserting and because of urinary retention, Dr. Valente performed a Coude catheter insertion. This morning the patient is confused but feeling much better. The pain is also better but however overnight the patient had hypotension and had to be transferred to ICU for IV fluids and as well as norepinephrine. The patient being closely monitored. PAST MEDICAL HISTORY: Reviewed. REVIEW OF SYSTEMS: Could not be taken. The patient has significant dementia, mostly temporoparietal dementia. CURRENT MEDICATIONS: 1. Include Tylenol 650 q.6h p.r.n. 2. Rocephin 1 g daily. 3. Heparin 5000 subcu b.i.d. 4. Ativan 0.5 mg p.r.n. 5. Melatonin 3 mg p.o. q.h.s. 6. Lopressor 12.5 mg b.i.d. 7. Narcan 0.2 q.2h p.r.n. 8. Levophed drip. 9. Risperdal 0.5 mg q.h.s. 10.Protonix. 11.Multivitamins. PHYSICAL EXAM: Patient is conscious, confused. Pulse 74, blood pressure 90/60, respiration 13, temperature 97.4, pulse ox 100% on room air. HEENT: Conjunctivae normal. Oral mucosa moist. Neck is no jugular venous distention. No carotid bruit. No lymph node enlargement. CARDIOVASCULAR: S1, S2. RESPIRATORY: Breath sounds diminished in the bases. A few scattered rhonchi and crackles. ABDOMEN: Soft, nontender. LEGS: No edema. NERVOUS SYSTEM: Diffusely weak. LABS: WBC 12, hemoglobin 13.9, sodium 142, potassium 5, glucose 116 and CK-MB 3 and the troponin went up to 0.63. ASSESSMENT: 1. Troponin 0.633, possible acute non ST-segment elevation myocardial infarction with nonspecific ST-T changes and hypotension. 2. Complicated urinary tract infection. 3. Change in mental status, metabolic encephalopathy, acute on chronic. 4. Possible early sepsis. 5. History of benign prostatic hypertrophy with indwelling Chi catheter with difficulties in re-insertion with possible trauma, status post coude catheter insertion. 6. History of recent fall. 7. Advanced dementia possibly temporoparietal. 8. Increased WBC. 9. FULL CODE. RECOMMENDATIONS AND DISCUSSION: This 87-year-old gentleman who presented with multiple complex medical issues, we will monitor the patient closely. Continue the current management and symptomatic treatment. At this time, I recommend continue with broad-spectrum IV antibiotics. Continue the rest of the medications. Monitor blood pressure closely and PT, OT evaluation, possible ECF rehab. See orders. Closely follow with multiple consultants. Follow the cultures and fall precautions. The prognosis guarded. Discussed with the family at length who understand. Further recommendations to follow. Medication reconciliation has been done. Also we will use the lower dose of metoprolol because of the hypotension. Continue to monitor prognosis. MMODL / IJN: [id number] /
[2018-01-08] MEDS: 1: MVI, ADULT NO.4 WITH VIT K 10 ML, THIAMINE 100 MG, FOLIC ACID 1 MG in SODIUM CHLORIDE IV SCH ×4 (16:09)
[2018-01-08] MEDS: BETHANECHOL 25 MG TAB PO SCH (16:10)
[2018-01-08] MEDS: METOPROLOL TARTRATE 12.5 MG TAB PO SCH ×2 (16:10→22:12)
--- NOTE | 2018-01-08 20:15 | P.PN ---
Subjective Progress Note Date: 01/08/18 Principal diagnosis: altered mental status Neurology is following in an 87-year-old male for altered mental status. Patient was brought to the ED with mental status changes and complicated UTI. Patient is poor historian. Patient was initially seen at [facility] for suspected bowel obstruction. Workup revealed large prostate and urinary tract infection. Patient was transferred to rehabilitation, had a fall and questionable activity consistent with seizure. Per staff/nursing, patient was having tremors with no altered consciousness during the episode. CBC noted leukocytosis, CMP was normal. UA showed greater than 182 WBCs and large leukocyte esterase. Hematuria also seen. Cardiac enzymes showed elevated troponin, elevated CK-MB. CPK was normal. At time of contact, patient was supine in bed, spouse and daughter at the bedside. Patient was AOx1, resting in bed in no acute distress. Patient reportedly began wandering or attempting to exit bed during the nighttime hours last evening. Patient reportedly experienced a fall that was attended to by staff and nursing. Per family and nursing there was no trauma to the head or neck and no residual or increased deficits. Objective - Vital Signs Vital signs: Vital Signs Temp 97.6 F 01/08/18 16:00 Pulse 75 01/08/18 17:00 Resp 16 01/08/18 17:00 BP 110/61 01/08/18 17:00 Pulse Ox 97 01/08/18 17:00 Intake & Output 01/08/18 01/08/18 01/09/18 06:59 18:59 06:59 Intake Total 966.50 600 Output Total 150 815 Balance 816.50 -215 Intake: IV 850 600 Mvi, Adult No.4 with Vit 650 400 K 10 ml Thiamine 100 mg Folic Acid 1 mg In Sodium Chloride 0.9% 1,000 ml @ 50 mls/hr IV .BY DURATION VERONICA Rx#: [id number] Sodium Chloride 0.9% 1, 200 200 000 ml @ 100 mls/hr IV . BY DURATION VERONICA Rx#: [id number] Intake, IV Titration 116.50 Amount Norepinephrin 4 mg-0.9% 116.50 Ns Pmx 4 mg In 250 ml @ Titrate IV .Q0M VERONICA Rx#: [id number] Output: Urine 150 815 Other: Voiding Method Indwelling Catheter Indwelling Catheter - Exam General appearance: Alert & oriented x1, no apparent distress, confused Head: Atraumatic, normocephalic, normal inspection Eyes: PERRLA, EOMI- with notations below Ear, nose and throat: Normal exam, mucous membranes moist Neck: Normal inspection, absent tenderness, lymphadenopathy. Respiratory: No increased work of breathing Cardiovascular: Regular rate, rhythm GI/abdominal:no guarding, no rigidity. Extremities: full range of motion 4 Neurological: Awake but extremely disoriented Not answer questions appropriately but does attempt to answer, follows verbal commands greater than 50% of the time Purposeful movements of all 4 extremities without any noted deficits related to strength or range of motion cranial nerves II through XII intact no lateralizing weakness no seizure activity noted on physical exam visually tracks horizontally, difficult tracking vertically Psychological: Mood and affect appropriate for setting. - Labs CBC & Chem 7: 01/08/18 04:54 01/08/18 04:54 Labs: Abnormal Lab Results - Last 24 Hours (Table) 01/07/18 01/08/18 01/08/18 Range/Units 22:13 01:08 04:54 WBC 12.0 H (3.8-10.6) k/uL Monocytes # 1.1 H (0-1.0) k/uL Chloride (98-107) mmol/L Carbon Dioxide (22-30) mmol/L Glucose (74-99) mg/dL POC Glucose (mg/dL) 132 H (75-99) mg/dL Calcium (8.4-10.2) mg/dL CK-MB (CK-2) 3.5 H* (0.0-2.4) ng/mL Troponin I 0.633 H* (0.000-0.034) ng/mL 01/08/18 01/08/18 01/08/18 Range/Units 04:54 04:54 06:45 WBC (3.8-10.6) k/uL Monocytes # (0-1.0) k/uL Chloride 113 H (98-107) mmol/L Carbon Dioxide 20 L (22-30) mmol/L Glucose 116 H (74-99) mg/dL POC Glucose (mg/dL) (75-99) mg/dL Calcium 8.3 L (8.4-10.2) mg/dL CK-MB (CK-2) 3.0 H* (0.0-2.4) ng/mL Troponin I 0.319 H* (0.000-0.034) ng/mL Microbiology - Last 24 Hours (Table) 01/07/18 13:20 Blood Culture - Preliminary Blood No Growth after 24 hours 01/07/18 23:57 Urine Culture - Preliminary Urine,Catheterized 01/07/18 16:50 Urine Culture - Preliminary Urine,Catheterized Assessment and Plan (1) Altered mental status Current Visit: Yes Status: Acute Code(s): R41.82 - ALTERED MENTAL STATUS, UNSPECIFIED SNOMED Code(s): 007668156 (2) Toxic metabolic encephalopathy Current Visit: Yes Status: Acute Code(s): G92 - TOXIC ENCEPHALOPATHY SNOMED Code(s): 635298916 (3) Dementia Current Visit: Yes Status: Acute Code(s): F03.90 - UNSPECIFIED DEMENTIA WITHOUT BEHAVIORAL DISTURBANCE SNOMED Code(s): 93665578 (4) Risk for falls Current Visit: Yes Status: Acute Code(s): Z91.81 - HISTORY OF FALLING SNOMED Code(s): 423121679 Plan: Patient does have history of advanced dementia and is still quite disoriented. Spouse and daughter note that the patient is not returned to baseline with regard to his dementia status. Continue to correct underling abnormal labs and etiologies. EEG notes moderate encephalopathy. Recommend discontinuing tramadol for this patient. Patient is greater than 60 years old. Questionable status regarding new onset seizure prior to admission and risk for reduced seizure threshold with tramadol use in the elderly is noted. Continue fall precautions, neurological checks per protocol and advise neurology with any negative neurological changes Neurology will continue to follow and provide updates as needed or warranted. Current status: guarded I have discussed the plan of care with the physician prior to implementation and he agrees with the plan as implemented.
[2018-01-08] MEDS: DONEPEZIL 5 MG TAB PO SCH (20:51)
[2018-01-08] MEDS: MEMANTINE 10 MG TAB PO SCH (20:51)
[2018-01-08] MEDS: risperiDONE 0.25 MG TAB PO SCH (20:51)
[2018-01-08] MEDS: LACTOBACILLUS ACIDOPH & BULGAR 1 EACH PACKET PO SCH (20:52)
[2018-01-09] MEDS: 1: MVI, ADULT NO.4 WITH VIT K 10 ML, THIAMINE 100 MG, FOLIC ACID 1 MG in SODIUM CHLORIDE IV SCH ×8 (02:00→21:02)
[2018-01-09 04:32] LABS: Basophils % (A) 0 %; Eosinophils # (A) 0.4 k/uL (0-0.7); Eosinophils % (A) 4 %; HCT 37.5 % (39.0-53.0); HGB 12.3 gm/dL (13.0-17.5); Lymphocytes # (A) 1.7 k/uL (1.0-4.8); Lymphocytes % (A) 18 %; MCH 29.4 pg (25.0-35.0); MCHC 32.8 g/dL (31.0-37.0); Mean Platelet Volume 7.3; Monocytes # (A) 0.6 k/uL (0-1.0); Monocytes % (A) 7 %; Neutrophils # (A) 6.7 k/uL (1.3-7.7); Neutrophils % (A) 69 %; Platelet Count 256 k/uL (150-450); RBC 4.19 m/uL (4.30-5.90); RDW 13.9 % (11.5-15.5); WBC 9.6 k/uL (3.8-10.6)
[2018-01-09 04:34] LABS: MCV 89.5 fL (80.0-100.0)
[2018-01-09 04:41] LABS: Anion Gap 7 mmol/L; Blood Urea Nitrogen 7 mg/dL (9-20); Calcium 8.1 mg/dL (8.4-10.2); Carbon Dioxide 25 mmol/L (22-30); Chloride 107 mmol/L (98-107); Glucose 81 mg/dL (74-99); Magnesium 1.7 mg/dL (1.6-2.3); Phosphorus 2.7 mg/dL (2.5-4.5); Potassium 3.7 mmol/L (3.5-5.1); Sodium 139 mmol/L (137-145)
[2018-01-09] MEDS: BETHANECHOL 25 MG TAB PO SCH ×3 (07:07→16:45)
[2018-01-09] MEDS: PANTOPRAZOLE 40 MG TABLET PO SCH (07:07)
[2018-01-09] MEDS: ASPIRIN 81 MG PO SCH (07:07)
[2018-01-09] MEDS: TAMSULOSIN 0.4 MG CAP.ER.24H PO SCH (07:07)
[2018-01-09] MEDS ORDERED: Magnesium Replacement Protocol 1 EACH MISC MISCELLANE PRN (07:25)
[2018-01-09] MEDS ORDERED: Potassium Replacement Protocol 1 EACH MISC MISCELLANE PRN (07:25)
[2018-01-09] MEDS: MAGNESIUM SULFATE-D5W PMX 1 GM in DEXTROSE/WATER 1 100ML.BAG IVPB SCH ×2 (07:46→09:23)
[2018-01-09] MEDS: cefTRIAXone IN SWFI 1,000 MG/10 ML SYRINGE IVP SCH (07:51)
[2018-01-09] MEDS: SENNOSIDES-DOCUSATE SODIUM 1 EACH TAB PO SCH (07:51)
[2018-01-09] MEDS: LACTOBACILLUS ACIDOPH & BULGAR 1 EACH PACKET PO SCH ×2 (07:52→20:48)
[2018-01-09] MEDS: HEPARIN SODIUM,PORCINE 5,000 UNIT/ML 1 ML VIAL SQ SCH ×2 (07:52→20:49)
[2018-01-09] MEDS: METOPROLOL TARTRATE 12.5 MG TAB PO SCH ×3 (07:52→20:48)
[2018-01-09] MEDS ORDERED: POTASSIUM CHLORIDE ER 20 MEQ TAB.ER PO SCH (08:00)
--- NOTE | 2018-01-09 09:49 | P.PN ---
Subjective Progress Note Date: 01/09/18 Principal diagnosis: Acute sepsis and septic shock secondary to urinary tract infection This is an 87-year-old white male with history of dementia, chronic and recurrent urinary tract infection, transferred from [facility] due to possible sepsis and urinary tract infection. Patient cannot give any history, patient has profound dementia, however most of the information was obtained from the chart. Back in December, patient developed a bowel obstruction, and he was treated at [facility]. He also developed while inpatient urinary retention, and a Chi catheter was placed. Patient was discharged to [facility] rehab facility, continued to have catheter in place, and he could not void on his own. His catheter was being changed periodically. When he 4 hours prior to admission, patient developed vomiting and what seems to be a seizure-like activity. He also had a low-grade fever, seen at [facility], and arrangements were made for him to be transferred to [facility]. Patient was a direct transfer, and while on the floor last night, patient became hypotensive, required fluid boluses, and he was transferred to the ICU. I was called about the patient, recommended norepinephrine to be started after a liter of fluid bolus, patient remains on norepinephrine for almost 8 hours, and this was discontinued early this morning. His urinalysis is suspicious for urinary tract infection, and considering the presentation I believe this is sepsis, septic shock secondary to urinary tract infection. I saw the patient this morning, he is hemodynamically stable, afebrile, in no form of respiratory distress. Cultures are pending including urine and blood. WBC count is 12 his electrolytes are normal renal profile is normal slightly elevated troponin is noted, patient was already seen by cardiology, felt that the patient may have had a non-ST elevation myocardial infarction, and recommended low-dose beta blockers, did not recommend any other intervention. Chest x-ray on admission was relatively unremarkable and no evidence of pneumonia and no evidence of congestive heart failure. Patient fell out of bed early this morning, and a CT of the brain was done, no significant abnormality was noted. Patient was reevaluated today on 01/09/2018, doing well, relatively asymptomatic, hemodynamically stable, continues to have intermittent episodes of atrial fibrillation with RVR. Remains on beta blockers, dose may have to be modified. Patient is asymptomatic, remains confused as baseline. No seizure activity overnight. CBC is relatively normal electrolytes are normal renal profile is normal blood cultures are negative so far. Urine culture is pending. His last lactic acid was 1.0. Patient is off pressors. Not requiring any levo fed at all over the last 24 hours. Objective - Vital Signs Vital signs: Vital Signs Temp 97.9 F 01/09/18 08:00 Pulse 84 01/09/18 08:00 Resp 22 01/09/18 08:00 BP 101/47 01/09/18 08:00 Pulse Ox 94 L 01/09/18 08:00 Intake & Output 01/08/18 01/09/18 01/09/18 18:59 06:59 18:59 Intake Total 1611.2 400 Output Total 815 930 Balance 796.2 -530 Weight 74.2 kg Intake: IV 600 400 Mvi, Adult No.4 with Vit 400 K 10 ml Thiamine 100 mg Folic Acid 1 mg In Sodium Chloride 0.9% 1,000 ml @ 50 mls/hr IV .BY DURATION VERONICA Rx#: [id number] Sodium Chloride 0.9% 1, 200 400 000 ml @ 100 mls/hr IV . BY DURATION VERONICA Rx#: [id number] Intake, IV Titration 1011.2 Amount Mvi, Adult No.4 with Vit 1011.2 K 10 ml Thiamine 100 mg Folic Acid 1 mg In Sodium Chloride 0.9% 1,000 ml @ 50 mls/hr IV .BY DURATION VERONICA Rx#: [id number] Output: Urine 815 930 Other: Voiding Method Indwelling Catheter Indwelling Catheter Indwelling Catheter # Voids 0 - Exam Physical Exam: Revealed an 87-year-old white male, in no form of respiratory distress. Head: Atraumatic, normocephalic. HEENT:[Neck is supple.] [No neck masses.] [No thyromegaly.] [No JVD.]. PERRLA, EOMI, no icterus. Moist mucous membranes. Chest: [Clear throughout, no crackles, no rhonchi, no wheezes.] Cardiac Exam: Irregular irregular rhythm [Normal S1 and S2, no S3 gallop, no murmur.] Abdomen: [Soft, nontender, no megaly, no rebound, no guarding, normal bowel sounds.] Extremities: [No clubbing, no edema, no cyanosis.] Neurological Exam: Confused, has profound dementia, otherwise no other focal neurologic deficit. Lymphatics: No lymphadenopathy. Musculoskeletal normal range of motion, no deformities. - Labs CBC & Chem 7: 01/09/18 04:11 01/09/18 04:11 Labs: Abnormal Lab Results - Last 24 Hours (Table) 01/09/18 01/09/18 Range/Units 04:11 04:11 RBC 4.19 L (4.30-5.90) m/uL Hgb 12.3 L (13.0-17.5) gm/dL Hct 37.5 L (39.0-53.0) % BUN 7 L (9-20) mg/dL Calcium 8.1 L (8.4-10.2) mg/dL Microbiology - Last 24 Hours (Table) 01/07/18 23:52 Blood Culture - Preliminary Blood No Growth after 24 hours 01/07/18 16:50 Urine Culture - Final Urine,Catheterized 01/07/18 13:20 Blood Culture - Preliminary Blood No Growth after 24 hours 01/07/18 23:57 Urine Culture - Preliminary Urine,Catheterized Assessment and Plan Assessment: Impression: 1 acute hypotension secondary to sepsis and septic shock secondary to urinary tract infection. Although the hypotension could also be exacerbated by the fact that the patient was placed on a relatively high dose of beta jarret initially. 2 acute urinary tract infection 3 acute non-ST elevation myocardial infarction, could also be contributing to his hypotension. 4 advanced senile dementia 5 enlarged prostate and chronic urinary retention requiring Chi catheter placement. 6 questionable seizure disorder as noted in the HPI. Patient is being followed by neurology. Recommendation: Continue present supportive care measures, fluids, antibiotics, GI and DVT prophylaxis. Blood cultures are pending, urine cultures are pending , antibiotics will be readjusted based on the final culture. Considering the patient's hemodynamic stability, I will arrange for the patient be transferred to a monitor bed, atrial fibrillation needs to be a bit better controlled no need for ICU at this point. We'll continue to follow. Time with Patient: Less than 30
[2018-01-09] MEDS: DIGOXIN 125 MCG TAB PO SCH (11:00)
--- NOTE | 2018-01-09 11:48 | PN ---
PROGRESS NOTE Ton is an 87-year-old gentleman who is admitted to hospital with UTI, sepsis and unresponsive. Cardiology was consulted because of some issues with possible atrial fibrillation. He was started on Lopressor became somewhat hypotensive and this dose has been reduced to 12.5 t.i.d. He had one other episode of atrial fibrillation, short self-limited run of atrial fibrillation. The patient is currently on metoprolol. I am going to add digoxin to it. He had an echocardiogram that shows normal LV systolic function with mild mitral and tricuspid regurgitation. On exam, comfortable at rest. Vital signs are stable. There is no jugular venous distention. Chest exam reveals good air entry bilaterally. Heart exam reveals first and second heart sounds. No gallop. No murmur. Abdomen is soft. Examination of extremities did not reveal edema. Peripheral pulses are felt. Labs show a hemoglobin of 12.3, platelet count is 256. Potassium is 3.7. Creatinine is 0.7. Troponin was mildly elevated at 0.2, 0.6 and 0.3. ASSESSMENT: Paroxysmal atrial fibrillation. He is currently in sinus rhythm. I will continue the Lopressor and start him on digoxin. Echo shows normal LV function. If he has further episodes of atrial fibrillation and if there are no contraindications, we will consider anticoagulation probably with Eliquis 2.5 b.i.d. MMROSIOL / LATHAN: [id number] /
--- NOTE | 2018-01-09 13:06 | PN ---
PROGRESS NOTE DATE OF SERVICE: 01/09/2018 This 87-year-old gentleman who was admitted with complicated UTI and as well as elevated troponin also had hypotension. This morning, the patient also had burst of atrial fibrillation. The patient continues to be confused. The patient had a catheter changed by Urology. Patient being closely monitored in ICU. Multiple consultants are following the patient closely. PAST MEDICAL HISTORY: Reviewed. REVIEW OF SYSTEM: Could not be taken, the patient is confused. CURRENT MEDICATIONS ARE: Reviewed and include medications are: 1. Tylenol p.r.n. 2. Maalox p.r.n. 3. Aspirin 81 mg daily. 4. Bethanechol 25 mg t.i.d. 5. Rocephin 1000 mg 24 hours. 6. Lanoxin 125 mcg. 7. Aricept 5 mg q.h.s. 8. Heparin. 9. Lactinex. 10.Ativan p.r.n. 11.Melatonin. 13.Lopressor. 14.Replacement protocols. 15.Protonix. 16.Senokot. 17.Flomax. 18.Ultram. PHYSICAL EXAM: GENERAL: Patient is conscious but confused. VITAL SIGNS: Pulse 79, blood pressure 94/62, respiration 24, temperature 98.1, pulse ox 97% on room air. HEENT is conjunctivae normal. Oral mucosa moist. NECK is no jugular venous distention. No carotid bruit. No lymph node enlargement. CARDIOVASCULAR system: S1, S2 muffled. No S3, no S4. RESPIRATORY: Breath sounds diminished in the bases. A few scattered rhonchi and crackles. ABDOMEN: Soft, nontender. No mass palpable. LEGS: No edema and no swelling. NERVOUS SYSTEM: Higher functions as mentioned earlier. Moves all 4 limbs. Mild diffuse weakness present. No wasting. LYMPHATICS: No lymph nodes palpable in the neck, axillae or groin. SKIN: No ulcer, rash or bleeding. LABS: At this time shows WBC 9.2, hemoglobin 12.2, sodium 139, potassium 3.7, and calcium is 8.1, and troponin 0.319. ASSESSMENT: 1. Acute non ST-segment elevation myocardial infarction with nonspecific ST-T changes and hypotension with troponin 0.633. 2. Atrial fibrillation proximal. 3. Complicated urinary tract infection related to Chi catheter. 4. Urinary obstruction, status post Chi catheter change. 5. Change in mental status metabolic encephalopathy, acute on chronic. 6. Possibly sepsis present on admission. 7. History of benign prostatic hypertrophy with indwelling Chi catheter with difficulty of reinsertion with possible trauma status post coude catheter insertion. 8. History of recent fall. 9. Advanced dementia possibly temporoparietal. 10.Increased WBC. 11.FULL CODE. 12.Gait dysfunction. RECOMMENDATIONS AND DISCUSSION: In this 87-year-old gentleman who presented with multiple complex medical issues , we will monitor the patient closely, continue the current management and symptomatic treatment. Otherwise, continue the empiric antibiotics. The cultures have been negative so far. PT, OT evaluation, possible ECF rehab. Continue with hydration. Monitor blood pressure closely. The patient is started on a small dose of beta blockers and antiplatelet agents. The prognosis is guarded which I discussed at length with the patient's and daughter at the bedside. Further recommendations to follow. GUTIERREZ / LATHAN: [id number] / WILNER
[2018-01-09] MEDS: METOPROLOL TARTRATE 50 MG TAB PO SCH (18:03)
[2018-01-09] MEDS: risperiDONE 0.25 MG TAB PO SCH (20:48)
[2018-01-09] MEDS: DONEPEZIL 5 MG TAB PO SCH (20:48)
[2018-01-09] MEDS: MEMANTINE 10 MG TAB PO SCH (20:49)
--- NOTE | 2018-01-09 21:56 | P.PN ---
Subjective Progress Note Date: 01/09/18 Principal diagnosis: altered mental status Neurology is following in an 87-year-old male for altered mental status. Patient was brought to the ED with mental status changes and complicated UTI. Patient is poor historian. Patient was initially seen at [facility] for suspected bowel obstruction. Workup revealed large prostate and urinary tract infection. Patient was transferred to rehabilitation, had a fall and questionable activity consistent with seizure. Per staff/nursing, patient was having tremors with no altered consciousness during the episode. CBC noted leukocytosis, CMP was normal. UA showed greater than 182 WBCs and large leukocyte esterase. Hematuria also seen. Cardiac enzymes showed elevated troponin, elevated CK-MB. CPK was normal. 01/09/18: Neurology is following an 87-year-old gentleman with multiple chronic conditions including sepsis . Patient is being followed for altered mental status as the primary diagnosis. Day over day, the patient is more alert however is still considerably confused. Patient does have a normal confused baseline. However, patient's spouse in the room states that he has improved significantly but is not yet back to his baseline. On contact, the patient was sitting in bedside chair, resting in no acute distress. Patient is in no acute distress at/ with family at the bedside and in the room. Overall the patient is somewhat improved day over day. 01/08/18: At time of contact, patient was supine in bed, spouse and daughter at the bedside. Patient was AOx1, resting in bed in no acute distress. Patient reportedly began wandering or attempting to exit bed during the nighttime hours last evening. Patient reportedly experienced a fall that was attended to by staff and nursing. Per family and nursing there was no trauma to the head or neck and no residual or increased deficits. Objective - Vital Signs Vital signs: Vital Signs Temp 97.5 F L 01/09/18 18:20 Pulse 76 01/09/18 18:20 Resp 16 01/09/18 18:20 BP 124/64 01/09/18 18:20 Pulse Ox 100 01/09/18 18:20 Intake & Output 01/09/18 01/09/18 01/10/18 06:59 18:59 06:59 Intake Total 1400 350 Output Total 930 1300 600 Balance 470 -950 -600 Weight 74.2 kg Intake: IV 400 350 Mvi, Adult No.4 with Vit 350 K 10 ml Thiamine 100 mg Folic Acid 1 mg In Sodium Chloride 0.9% 1,000 ml @ 50 mls/hr IV .BY DURATION VERONICA Rx#: [id number] Sodium Chloride 0.9% 1, 400 000 ml @ 100 mls/hr IV . BY DURATION VERONICA Rx#: [id number] Intake, IV Titration 1000 Amount Sodium Chloride 0.9% 1, 1000 000 ml @ 100 mls/hr IV . BY DURATION VERONICA Rx#: [id number] Output: Urine 930 1300 600 Stool 0 Urine/Stool Mix 0 Emesis 0 Other: Voiding Method Indwelling Catheter Indwelling Catheter # Voids 0 0 # Bowel Movements 0 - Exam General appearance: Alert & oriented x1, no apparent distress, confused Head: Atraumatic, normocephalic, normal inspection Eyes: PERRLA, EOMI- with notations below Ear, nose and throat: Normal exam, mucous membranes moist Neck: Normal inspection, absent tenderness, lymphadenopathy. Respiratory: No increased work of breathing Cardiovascular: Regular rate, rhythm GI/abdominal:no guarding, no rigidity. Extremities: full range of motion 4 Neurological: Awake but extremely disoriented attempts to answer questions appropriately but does provide correct answers most of the time. Patient will follow verbal commands approximately 15-25% of the time. Purposeful movements of all 4 extremities without any noted deficits related to strength or range of motion cranial nerves II through XII intact no lateralizing weakness no seizure activity noted on physical exam visually tracks horizontally, difficult tracking vertically Psychological: Mood and affect appropriate for setting. - Labs CBC & Chem 7: 01/09/18 04:11 01/09/18 04:11 Labs: Abnormal Lab Results - Last 24 Hours (Table) 01/09/18 01/09/18 Range/Units 04:11 04:11 RBC 4.19 L (4.30-5.90) m/uL Hgb 12.3 L (13.0-17.5) gm/dL Hct 37.5 L (39.0-53.0) % BUN 7 L (9-20) mg/dL Calcium 8.1 L (8.4-10.2) mg/dL Microbiology - Last 24 Hours (Table) 01/07/18 13:20 Blood Culture - Preliminary Blood No Growth after 48 hours 01/07/18 23:57 Urine Culture - Final Urine,Catheterized 01/07/18 23:52 Blood Culture - Preliminary Blood No Growth after 24 hours 01/07/18 16:50 Urine Culture - Final Urine,Catheterized Assessment and Plan (1) Altered mental status Current Visit: Yes Status: Acute Code(s): R41.82 - ALTERED MENTAL STATUS, UNSPECIFIED SNOMED Code(s): 868592055 (2) Toxic metabolic encephalopathy Current Visit: Yes Status: Acute Code(s): G92 - TOXIC ENCEPHALOPATHY SNOMED Code(s): 013168709 (3) Dementia Current Visit: Yes Status: Acute Code(s): F03.90 - UNSPECIFIED DEMENTIA WITHOUT BEHAVIORAL DISTURBANCE SNOMED Code(s): 13546347 (4) Risk for falls Current Visit: Yes Status: Acute Code(s): Z91.81 - HISTORY OF FALLING SNOMED Code(s): 566388716 Plan: Patient does have history of advanced dementia and is still quite disoriented. Spouse and daughter note that the patient is not returned to baseline with regard to his dementia status, but has made significant progress. Continue to correct underling abnormal labs and etiologies. EEG notes moderate encephalopathy. Questionable status regarding new onset seizure prior to admission and risk for reduced seizure threshold with tramadol use in the elderly is noted. Continue fall precautions, neurological checks per protocol and advise neurology with any negative neurological changes Status: Neurology will continue to follow on an as-needed basis as the patient is improving and is not in acute neurological distress at this time. I have discussed the plan of care with the physician prior to implementation and he agrees with the plan as implemented.
[2018-01-10 06:40] LABS: Basophils # (A) 0.1 k/uL (0-0.2); Basophils % (A) 1 %; Eosinophils # (A) 0.3 k/uL (0-0.7); Eosinophils % (A) 4 %; HCT 39.7 % (39.0-53.0); HGB 13.4 gm/dL (13.0-17.5); Lymphocytes # (A) 1.6 k/uL (1.0-4.8); Lymphocytes % (A) 17 %; MCH 30.1 pg (25.0-35.0); MCHC 33.9 g/dL (31.0-37.0); MCV 88.9 fL (80.0-100.0); Mean Platelet Volume 7.7; Monocytes # (A) 0.5 k/uL (0-1.0); Monocytes % (A) 6 %; Neutrophils # (A) 6.5 k/uL (1.3-7.7); Neutrophils % (A) 71 %; Platelet Count 272 k/uL (150-450); RBC 4.46 m/uL (4.30-5.90); RDW 14.5 % (11.5-15.5); WBC 9.2 k/uL (3.8-10.6)
[2018-01-10] MEDS: ASPIRIN 81 MG PO SCH (06:45)
[2018-01-10] MEDS: BETHANECHOL 25 MG TAB PO SCH ×3 (06:46→17:19)
[2018-01-10] MEDS: TAMSULOSIN 0.4 MG CAP.ER.24H PO SCH (06:46)
[2018-01-10] MEDS: PANTOPRAZOLE 40 MG TABLET PO SCH (06:46)
[2018-01-10 06:47] LABS: Anion Gap 8 mmol/L; Blood Urea Nitrogen 6 mg/dL (9-20); Calcium 8.2 mg/dL (8.4-10.2); Carbon Dioxide 25 mmol/L (22-30); Chloride 107 mmol/L (98-107); Glucose 98 mg/dL (74-99); Potassium 3.8 mmol/L (3.5-5.1); Sodium 140 mmol/L (137-145)
[2018-01-10] MEDS: cefTRIAXone IN SWFI 1,000 MG/10 ML SYRINGE IVP SCH (08:01)
[2018-01-10] MEDS: METOPROLOL TARTRATE 12.5 MG TAB PO SCH ×3 (08:02→20:38)
[2018-01-10] MEDS: HEPARIN SODIUM,PORCINE 5,000 UNIT/ML 1 ML VIAL SQ SCH (08:02)
[2018-01-10] MEDS: LACTOBACILLUS ACIDOPH & BULGAR 1 EACH PACKET PO SCH ×2 (08:02→20:39)
[2018-01-10] MEDS: DIGOXIN 125 MCG TAB PO SCH (08:02)
[2018-01-10] MEDS: SENNOSIDES-DOCUSATE SODIUM 1 EACH TAB PO SCH (08:09)
[2018-01-10] MEDS: 1: MVI, ADULT NO.4 WITH VIT K 10 ML, THIAMINE 100 MG, FOLIC ACID 1 MG in SODIUM CHLORIDE IV SCH ×4 (08:09)
[2018-01-10] MEDS ORDERED: APIXABAN 2.5 MG TABLET PO SCH (09:00)
--- NOTE | 2018-01-10 10:33 | P.PN ---
Subjective Progress Note Date: 01/10/18 Principal diagnosis: Acute sepsis and septic shock secondary to urinary tract infection This is an 87-year-old white male with history of dementia, chronic and recurrent urinary tract infection, transferred from [facility] due to possible sepsis and urinary tract infection. Patient cannot give any history, patient has profound dementia, however most of the information was obtained from the chart. Back in December, patient developed a bowel obstruction, and he was treated at [facility]. He also developed while inpatient urinary retention, and a Chi catheter was placed. Patient was discharged to [facility] rehab facility, continued to have catheter in place, and he could not void on his own. His catheter was being changed periodically. When he 4 hours prior to admission, patient developed vomiting and what seems to be a seizure-like activity. He also had a low-grade fever, seen at [facility], and arrangements were made for him to be transferred to [facility]. Patient was a direct transfer, and while on the floor last night, patient became hypotensive, required fluid boluses, and he was transferred to the ICU. I was called about the patient, recommended norepinephrine to be started after a liter of fluid bolus, patient remains on norepinephrine for almost 8 hours, and this was discontinued early this morning. His urinalysis is suspicious for urinary tract infection, and considering the presentation I believe this is sepsis, septic shock secondary to urinary tract infection. I saw the patient this morning, he is hemodynamically stable, afebrile, in no form of respiratory distress. Cultures are pending including urine and blood. WBC count is 12 his electrolytes are normal renal profile is normal slightly elevated troponin is noted, patient was already seen by cardiology, felt that the patient may have had a non-ST elevation myocardial infarction, and recommended low-dose beta blockers, did not recommend any other intervention. Chest x-ray on admission was relatively unremarkable and no evidence of pneumonia and no evidence of congestive heart failure. Patient fell out of bed early this morning, and a CT of the brain was done, no significant abnormality was noted. Patient was reevaluated today on 01/09/2018, doing well, relatively asymptomatic, hemodynamically stable, continues to have intermittent episodes of atrial fibrillation with RVR. Remains on beta blockers, dose may have to be modified. Patient is asymptomatic, remains confused as baseline. No seizure activity overnight. CBC is relatively normal electrolytes are normal renal profile is normal blood cultures are negative so far. Urine culture is pending. His last lactic acid was 1.0. Patient is off pressors. Not requiring any levo fed at all over the last 24 hours. Reevaluated today on 01/10/2018, patient is relatively asymptomatic, remains hemodynamically stable, continues to have intermittent episodes of atrial fibrillation, rate seems to be better controlled. Labs are relatively unremarkable including a CBC and a basic metabolic profile and renal profile. Objective - Vital Signs Vital signs: Vital Signs Temp 98.0 F 01/10/18 08:00 Pulse 89 01/10/18 08:00 Resp 18 01/10/18 08:00 BP 122/68 01/10/18 08:00 Pulse Ox 97 01/10/18 08:00 Intake & Output 01/09/18 01/10/18 01/10/18 18:59 06:59 18:59 Intake Total 350 2211.2 Output Total 1300 1400 Balance -950 811.2 Weight 77 kg Intake: IV 350 1000 Mvi, Adult No.4 with Vit 350 1000 K 10 ml Thiamine 100 mg Folic Acid 1 mg In Sodium Chloride 0.9% 1,000 ml @ 50 mls/hr IV .BY DURATION [facility] Rx#: [id number] Intake, IV Titration 1011.2 Amount Mvi, Adult No.4 with Vit 1011.2 K 10 ml Thiamine 100 mg Folic Acid 1 mg In Sodium Chloride 0.9% 1,000 ml @ 50 mls/hr IV .BY DURATION [facility] Rx#: [id number] Oral 200 Output: Urine 1300 1400 Stool 0 Urine/Stool Mix 0 Emesis 0 Other: Voiding Method Indwelling Catheter Indwelling Catheter Indwelling Catheter # Voids 1 # Bowel Movements 0 - Exam Physical Exam: Revealed an 87-year-old white male, in no form of respiratory distress. Head: Atraumatic, normocephalic. HEENT:[Neck is supple.] [No neck masses.] [No thyromegaly.] [No JVD.]. PERRLA, EOMI, no icterus. Moist mucous membranes. Chest: [Clear throughout, no crackles, no rhonchi, no wheezes.] Cardiac Exam: Irregular irregular rhythm [Normal S1 and S2, no S3 gallop, no murmur.] Abdomen: [Soft, nontender, no megaly, no rebound, no guarding, normal bowel sounds.] Extremities: [No clubbing, no edema, no cyanosis.] Neurological Exam: Confused, has profound dementia, otherwise no other focal neurologic deficit. Lymphatics: No lymphadenopathy. Musculoskeletal normal range of motion, no deformities. - Labs CBC & Chem 7: 01/10/18 06:07 01/10/18 06:07 Labs: Abnormal Lab Results - Last 24 Hours (Table) 01/10/18 Range/Units 06:07 BUN 6 L (9-20) mg/dL Creatinine 0.60 L (0.66-1.25) mg/dL Calcium 8.2 L (8.4-10.2) mg/dL Microbiology - Last 24 Hours (Table) 01/07/18 23:52 Blood Culture - Preliminary Blood No Growth after 48 hours 01/07/18 13:20 Blood Culture - Preliminary Blood No Growth after 48 hours 01/07/18 23:57 Urine Culture - Final Urine,Catheterized Assessment and Plan Assessment: Impression: 1 acute hypotension secondary to sepsis and septic shock possibly secondary to questionable urinary tract infection. Cultures remain negative so far. Nondiagnostic. hypotension could also be exacerbated by the fact that the patient was placed on a relatively high dose of beta jarret initially. 2 acute urinary tract infection, was suspected initially on presentation, but the cultures are negative. Hence urinary tract infection was ruled out. 3 acute non-ST elevation myocardial infarction, could also be contributing to his hypotension. 4 advanced senile dementia 5 enlarged prostate and chronic urinary retention requiring Chi catheter placement. 6 questionable seizure disorder as noted in the HPI. Patient is being followed by neurology. Recommendation: Continue present supportive care measures, fluids, antibiotics, GI and DVT prophylaxis. Blood cultures are negative and urine cultures are negative, consider stopping antibiotics consider discharge planning on Friday Time with Patient: Less than 30
--- NOTE | 2018-01-10 11:34 | P.PN ---
Subjective Progress Note Date: 01/10/18 Is an 87-year-old gentleman with history of dementia, chronic UTIs, presented to the hospital with symptoms of vomiting and possible seizure-like activity. He was being followed in the intensive care unit, now being followed on the telemetry unit. A cardiology consultation was requested because of atrial fibrillation. Patient was started on Lopressor and became somewhat hypotensive, he is remaining in normal sinus rhythm at this time. Echocardiogram with Doppler study was performed which revealed a normal left ventricular systolic function. Patient did have 2 falls while he was here and apparently also had a fall as an outpatient. The discussion was made whether to start the patient on anticoagulation, it does appear that he is at increased risk for falls. At pressure today 105/50 with a heart rate in the 70s, 96% on room air. White blood cell count 9.2, hemoglobin 13.4, platelet count 272. Sodium 140, potassium 3.8, BUN 6, creatinine 0.6. Objective - Vital Signs Vital signs: Vital Signs Temp 97.8 F 01/10/18 11:17 Pulse 75 01/10/18 11:17 Resp 16 01/10/18 11:17 BP 105/58 01/10/18 11:17 Pulse Ox 96 01/10/18 11:17 Intake & Output 01/09/18 01/10/18 01/10/18 18:59 06:59 18:59 Intake Total 350 2211.2 Output Total 1300 1400 Balance -950 811.2 Weight 77 kg Intake: IV 350 1000 Mvi, Adult No.4 with Vit 350 1000 K 10 ml Thiamine 100 mg Folic Acid 1 mg In Sodium Chloride 0.9% 1,000 ml @ 50 mls/hr IV .BY DURATION [facility] Rx#: [id number] Intake, IV Titration 1011.2 Amount Mvi, Adult No.4 with Vit 1011.2 K 10 ml Thiamine 100 mg Folic Acid 1 mg In Sodium Chloride 0.9% 1,000 ml @ 50 mls/hr IV .BY DURATION [facility] Rx#: [id number] Oral 200 Output: Urine 1300 1400 Stool 0 Urine/Stool Mix 0 Emesis 0 Other: Voiding Method Indwelling Catheter Indwelling Catheter Indwelling Catheter # Voids 1 # Bowel Movements 0 - Exam PHYSICAL EXAMINATION: GENERAL: 87-year-old gentleman in no apparent distress at the time of my examination. HEENT: Head is atraumatic, normocephalic. Pupils equal, round. Sclera anicteric. Conjunctiva are clear. Mucous membranes of the mouth are moist. Neck is supple. There is no elevated jugular venous pressure.] bruit is heard. HEART EXAMINATION: Heart S1, S2 normal. No murmur or gallop heard. CHEST EXAMINATION: Lungs are clear to auscultation and precussion. No chest wall tenderness is noted on palpation or with deep breathing. ABDOMEN: Soft, nontender. Bowel sounds are heard. No organomegaly noted. EXTREMITIES: 2+ peripheral pulses with no evidence of peripheral edema and no calf tenderness noted. NEUROLOGIC [patient is awake, confused. - Labs CBC & Chem 7: 01/10/18 06:07 01/10/18 06:07 Labs: Abnormal Lab Results - Last 24 Hours (Table) 01/10/18 Range/Units 06:07 BUN 6 L (9-20) mg/dL Creatinine 0.60 L (0.66-1.25) mg/dL Calcium 8.2 L (8.4-10.2) mg/dL Microbiology - Last 24 Hours (Table) 01/07/18 23:52 Blood Culture - Preliminary Blood No Growth after 48 hours 01/07/18 13:20 Blood Culture - Preliminary Blood No Growth after 48 hours 01/07/18 23:57 Urine Culture - Final Urine,Catheterized Assessment and Plan Plan: Assessment and plan #1 acute hypotension, likely secondary to sepsis #2 advanced dementia #3 paroxysmal atrial fibrillation #4 abnormal troponins, could be secondary to sepsis or hypotension. Plan Because of the patient's frequent falls, he is at increased risk for bleeding. At this time we will continue the patient on a baby aspirin only and not initiate anticoagulation at this time. DNP note has been reviewed, I agree with a documented findings and plan of care. Patient was seen and examined.
--- NOTE | 2018-01-10 17:58 | PN ---
PROGRESS NOTE DATE OF SERVICE: 01/10/2018 This 87-year-old gentleman who was admitted with acute non ST elevation myocardial infarction also had possibly UTI also. The patient continues to be confused. Monitor closely. No chest pain. No palpitations. No fever. Final cultures are pending at this time. PHYSICAL EXAMINATION: On exam, the patient is conscious, confused. Pulse 79, blood pressure 131/63, respiration 18, temperature 96.7, pulse ox 98% on room air. HEENT: Conjunctivae normal. Oral mucosa moist. Neck is no jugular venous distention. No carotid bruit. No lymph node enlargement. CARDIOVASCULAR: S1, S2 muffled. RESPIRATORY: Breath sounds diminished at the bases. A few scattered rhonchi. No crackles. ABDOMEN: Soft, nontender. LEGS: No edema, no swelling. NERVOUS SYSTEM: No focal deficits. LABS: CBC within normal limits. BMP within normal limits. ASSESSMENT: 1. Acute urinary tract infection with sepsis with possibly severe sepsis and hypotension, present on admission. 2. Acute non ST-segment elevation myocardial infarction with non-specific ST-T changes on the EKG with contributing to hypotension with troponin 0.633. 3. Atrial fibrillation, paroxysmal. 4. Complicated urinary tract infection related to Chi catheter. 5. Urinary obstruction, status post Chi catheter change. 6. Change in mental status, metabolic encephalopathy, acute on chronic. 7. History of benign prostatic hypertrophy with indwelling Chi catheter difficulty insertion with possible trauma, status post Coude catheter insertion. 8. History of recent fall. 9. Advanced dementia possibly temporoparietal. 10.Increased WBC. 11.FULL CODE. RECOMMENDATIONS AND DISCUSSION: This 87-year-old gentleman presented with multiple complex medical issues, will monitor the patient closely, continue the current medications, continue with antibiotics, continue the rest of medications. Closely follow with multiple consultants. Prognosis guarded. PT, OT evaluation, possible ECF rehab. Discussed with family, understands and agrees. Further recommendations to follow. MMODL / IJN: [id number] /
[2018-01-10] MEDS: MEMANTINE 10 MG TAB PO SCH (20:38)
[2018-01-10] MEDS: DONEPEZIL 5 MG TAB PO SCH (20:38)
[2018-01-10] MEDS: risperiDONE 0.25 MG TAB PO SCH (20:38)
[2018-01-11] MEDS: 1: MVI, ADULT NO.4 WITH VIT K 10 ML, THIAMINE 100 MG, FOLIC ACID 1 MG in SODIUM CHLORIDE IV SCH ×8 (01:19→18:31)
[2018-01-11 06:52] LABS: Basophils # (A) 0.1 k/uL (0-0.2); Basophils % (A) 1 %; Eosinophils # (A) 0.4 k/uL (0-0.7); Eosinophils % (A) 4 %; HCT 40.7 % (39.0-53.0); HGB 13.1 gm/dL (13.0-17.5); Lymphocytes # (A) 1.7 k/uL (1.0-4.8); Lymphocytes % (A) 17 %; MCH 29.2 pg (25.0-35.0); MCHC 32.3 g/dL (31.0-37.0); MCV 90.5 fL (80.0-100.0); Monocytes # (A) 0.6 k/uL (0-1.0); Monocytes % (A) 6 %; Neutrophils % (A) 70 %; Platelet Count 280 k/uL (150-450); WBC 10.1 k/uL (3.8-10.6)
[2018-01-11 07:11] LABS: Anion Gap 8 mmol/L; Blood Urea Nitrogen 5 mg/dL (9-20); Calcium 8.5 mg/dL (8.4-10.2); Carbon Dioxide 25 mmol/L (22-30); Chloride 110 mmol/L (98-107); Glucose 90 mg/dL (74-99); Magnesium 1.9 mg/dL (1.6-2.3); Phosphorus 3.2 mg/dL (2.5-4.5); Potassium 3.8 mmol/L (3.5-5.1); Sodium 143 mmol/L (137-145)
[2018-01-11] MEDS: PANTOPRAZOLE 40 MG TABLET PO SCH (07:27)
[2018-01-11] MEDS: METOPROLOL TARTRATE 12.5 MG TAB PO SCH ×3 (07:27→21:30)
[2018-01-11] MEDS: LACTOBACILLUS ACIDOPH & BULGAR 1 EACH PACKET PO SCH ×2 (07:27→21:30)
[2018-01-11] MEDS: BETHANECHOL 25 MG TAB PO SCH ×3 (07:27→17:11)
[2018-01-11] MEDS: ASPIRIN 81 MG PO SCH (07:28)
[2018-01-11] MEDS: DIGOXIN 125 MCG TAB PO SCH (07:28)
[2018-01-11] MEDS: TAMSULOSIN 0.4 MG CAP.ER.24H PO SCH (07:28)
[2018-01-11] MEDS: SENNOSIDES-DOCUSATE SODIUM 1 EACH TAB PO SCH (07:28)
[2018-01-11] MEDS: cefTRIAXone IN SWFI 1,000 MG/10 ML SYRINGE IVP SCH (07:35)
[2018-01-11 11:15] LABS: Glucose,Whole Blood 112 mg/dL (75-99)
--- NOTE | 2018-01-11 16:02 | PN ---
PROGRESS NOTE DATE OF SERVICE: 01/11/2018. INTERVAL HISTORY: This 87-year-old gentleman who was admitted with UTI with sepsis also had possibly a non ST segment elevation myocardial infarction. Also the patient continues to be confused. Patient has significant dementia. No chest pain. No palpitations. No fever. Gait dysfunction is also noted. PHYSICAL EXAM: Patient is conscious, confused. Pulse 73, blood pressure 131/60, respiration 18, temperature 98.8, pulse ox 97% room air. HEENT: Conjunctivae normal. NECK: No jugular venous distention. CARDIOVASCULAR: S1, S2 muffled. RESPIRATORY: Breath sounds diminished in the bases. No rhonchi and no crackles. ABDOMEN: Soft, nontender. Legs are no edema and no swelling. LAB: CBC and BMP within normal limits. ASSESSMENT: 1. Acute urinary tract infection with sepsis with possible severe sepsis and hypotension, present on admission. 2. Acute non ST-segment elevation myocardial infarction with nonspecific ST-T changes on the EKG contributing to hypotension with troponin 0.633. 3. Atrial fibrillation paroxysmal. 4. Complicated urinary tract infection related to Chi catheter. 5. Urinary obstruction, status post Chi catheter drainage. 6. Change in mental status, metabolic encephalopathy, acute on chronic. 7. History of benign prostatic hypertrophy with indwelling Chi catheter difficulty of insertion possible trauma, status post Coude catheter insertion. 8. History of recent fall. 9. Advanced dementia, possibly temporoparietal. 10.Increased WBC. 11.FULL CODE. RECOMMENDATIONS AND DISCUSSION: Continue current medications, continue with monitoring, symptomatic treatment. Otherwise, at this time, we will monitor the patient closely. Continue the antibiotics. Continue with the rest of the medications. PT/OT evaluation, possible ECF rehab. Further recommendations to follow. MMODL / IJN: [id number] /
[2018-01-11] MEDS: DONEPEZIL 5 MG TAB PO SCH (21:30)
[2018-01-11] MEDS: risperiDONE 0.25 MG TAB PO SCH (21:30)
[2018-01-11] MEDS: MEMANTINE 10 MG TAB PO SCH (21:30)
[2018-01-11] MEDS: MELATONIN 3 MG TABLET PO PRN (21:31)
[2018-01-12] MEDS: 1: MVI, ADULT NO.4 WITH VIT K 10 ML, THIAMINE 100 MG, FOLIC ACID 1 MG in SODIUM CHLORIDE IV SCH ×12 (05:01→23:23)
[2018-01-12 06:16] LABS: Basophils % (A) 0 %; Eosinophils # (A) 0.5 k/uL (0-0.7); Eosinophils % (A) 4 %; HCT 37.9 % (39.0-53.0); HGB 12.7 gm/dL (13.0-17.5); Lymphocytes % (A) 19 %; MCH 29.3 pg (25.0-35.0); MCHC 33.4 g/dL (31.0-37.0); MCV 87.7 fL (80.0-100.0); Mean Platelet Volume 7.7; Monocytes # (A) 0.6 k/uL (0-1.0); Monocytes % (A) 6 %; Neutrophils # (A) 7.1 k/uL (1.3-7.7); Neutrophils % (A) 68 %; Platelet Count 301 k/uL (150-450); RBC 4.33 m/uL (4.30-5.90); RDW 13.9 % (11.5-15.5); WBC 10.5 k/uL (3.8-10.6)
[2018-01-12 06:27] LABS: Anion Gap 9 mmol/L; Blood Urea Nitrogen 6 mg/dL (9-20); Calcium 8.4 mg/dL (8.4-10.2); Carbon Dioxide 25 mmol/L (22-30); Chloride 107 mmol/L (98-107); Glucose 92 mg/dL (74-99); Magnesium 1.8 mg/dL (1.6-2.3); Phosphorus 3.5 mg/dL (2.5-4.5); Sodium 141 mmol/L (137-145)
[2018-01-12] MEDS: BETHANECHOL 25 MG TAB PO SCH ×3 (08:42→16:56)
[2018-01-12] MEDS: ASPIRIN 81 MG PO SCH (08:42)
[2018-01-12] MEDS: PANTOPRAZOLE 40 MG TABLET PO SCH (08:42)
[2018-01-12] MEDS: SENNOSIDES-DOCUSATE SODIUM 1 EACH TAB PO SCH (08:42)
[2018-01-12] MEDS: TAMSULOSIN 0.4 MG CAP.ER.24H PO SCH (08:42)
[2018-01-12] MEDS: LACTOBACILLUS ACIDOPH & BULGAR 1 EACH PACKET PO SCH ×2 (08:43→21:00)
[2018-01-12] MEDS: METOPROLOL TARTRATE 12.5 MG TAB PO SCH ×3 (08:43→21:04)
[2018-01-12] MEDS: DIGOXIN 125 MCG TAB PO SCH (08:43)
[2018-01-12] MEDS: cefTRIAXone IN SWFI 1,000 MG/10 ML SYRINGE IVP SCH (09:07)
[2018-01-12 14:24] VITALS: BMI 25.1
[2018-01-12] MEDS: risperiDONE 0.25 MG TAB PO SCH (21:00)
[2018-01-12] MEDS: DONEPEZIL 5 MG TAB PO SCH (21:00)
[2018-01-12] MEDS: MEMANTINE 10 MG TAB PO SCH (21:00)
[2018-01-12] MEDS: MELATONIN 3 MG TABLET PO PRN (21:04)
[2018-01-13 06:54] LABS: Basophils # (A) 0.1 k/uL (0-0.2); Basophils % (A) 1 %; Eosinophils # (A) 0.4 k/uL (0-0.7); Eosinophils % (A) 4 %; HCT 38.1 % (39.0-53.0); HGB 12.7 gm/dL (13.0-17.5); Lymphocytes # (A) 2.1 k/uL (1.0-4.8); Lymphocytes % (A) 18 %; MCH 29.8 pg (25.0-35.0); MCHC 33.3 g/dL (31.0-37.0); MCV 89.7 fL (80.0-100.0); Mean Platelet Volume 7.5; Monocytes # (A) 0.7 k/uL (0-1.0); Monocytes % (A) 6 %; Neutrophils # (A) 7.8 k/uL (1.3-7.7); Neutrophils % (A) 69 %; Platelet Count 295 k/uL (150-450); RBC 4.25 m/uL (4.30-5.90); RDW 14.4 % (11.5-15.5); WBC 11.2 k/uL (3.8-10.6)
[2018-01-13 07:07] LABS: Anion Gap 9 mmol/L; Blood Urea Nitrogen 8 mg/dL (9-20); Calcium 8.3 mg/dL (8.4-10.2); Carbon Dioxide 28 mmol/L (22-30); Chloride 105 mmol/L (98-107); Glucose 95 mg/dL (74-99); Magnesium 1.8 mg/dL (1.6-2.3); Phosphorus 3.5 mg/dL (2.5-4.5); Potassium 4.2 mmol/L (3.5-5.1); Sodium 142 mmol/L (137-145)
[2018-01-13] MEDS: cefTRIAXone IN SWFI 1,000 MG/10 ML SYRINGE IVP SCH (08:25)
[2018-01-13] MEDS: ASPIRIN 81 MG PO SCH (08:26)
[2018-01-13] MEDS: BETHANECHOL 25 MG TAB PO SCH ×3 (08:26→17:20)
[2018-01-13] MEDS: TAMSULOSIN 0.4 MG CAP.ER.24H PO SCH (08:26)
[2018-01-13] MEDS: DIGOXIN 125 MCG TAB PO SCH (08:27)
[2018-01-13] MEDS: SENNOSIDES-DOCUSATE SODIUM 1 EACH TAB PO SCH (08:27)
[2018-01-13] MEDS: PANTOPRAZOLE 40 MG TABLET PO SCH (08:27)
[2018-01-13] MEDS: METOPROLOL TARTRATE 12.5 MG TAB PO SCH ×3 (08:27→21:01)
[2018-01-13] MEDS: LACTOBACILLUS ACIDOPH & BULGAR 1 EACH PACKET PO SCH ×2 (08:27→21:01)
[2018-01-13] MEDS: 1: MVI, ADULT NO.4 WITH VIT K 10 ML, THIAMINE 100 MG, FOLIC ACID 1 MG in SODIUM CHLORIDE IV SCH ×4 (11:56)
[2018-01-13] MEDS: MEMANTINE 10 MG TAB PO SCH (21:01)
[2018-01-13] MEDS: DONEPEZIL 5 MG TAB PO SCH (21:01)
[2018-01-13] MEDS: risperiDONE 0.25 MG TAB PO SCH (21:02)
[2018-01-14] MEDS: BETHANECHOL 25 MG TAB PO SCH ×2 (08:13→11:42)
[2018-01-14] MEDS: LACTOBACILLUS ACIDOPH & BULGAR 1 EACH PACKET PO SCH (08:13)
[2018-01-14] MEDS: METOPROLOL TARTRATE 12.5 MG TAB PO SCH (08:13)
[2018-01-14] MEDS: SENNOSIDES-DOCUSATE SODIUM 1 EACH TAB PO SCH (08:14)
[2018-01-14] MEDS: TAMSULOSIN 0.4 MG CAP.ER.24H PO SCH (08:14)
[2018-01-14] MEDS: ASPIRIN 81 MG PO SCH (08:14)
[2018-01-14] MEDS: DIGOXIN 125 MCG TAB PO SCH (08:14)
[2018-01-14] MEDS: PANTOPRAZOLE 40 MG TABLET PO SCH (08:14)
[2018-01-14] MEDS: cefTRIAXone IN SWFI 1,000 MG/10 ML SYRINGE IVP SCH (08:28)
[2018-01-14 08:35] VITALS: RESP 18
--- NOTE | 2018-01-14 09:43 | P.DS ---
Providers Date of admission: 01/07/18 11:49 Attending physician: Roselia Jovel Consults: 01/07/18 12:24 Consult Physician Routine Consulting Provider: Tena Nicolas Consult Reason/Comments: cad? Do you want consulting provider notified?: Yes 01/07/18 12:28 Consult Physician Stat Consulting Provider: Pola Carias Consult Reason/Comments: Enlarged Prostate, trauma Do you want consulting provider notified?: Yes 01/07/18 12:34 Consult Physician Routine Consulting Provider: Adilson Ladd Consult Reason/Comments: change in mentation, fall Do you want consulting provider notified?: Yes 01/07/18 23:09 Consult Physician Stat Consulting Provider: Diana Aldana Consult Reason/Comments: ICU management Do you want consulting provider notified?: Yes Primary care physician: Yelitza Dooley Hospital Course: Hospital Course: Final diagnosis Acute UTI with sepsis with the possible severe sepsis and hypotension present on admission. [place] acute non-ST segment elevation myocardial infarction with nonspecific ST-T changes: Contemplating to Hypotension with the troponin 0.63 80 fibrillation paroxysmal Complicated UTI related to Chi catheter Urinary obstruction status post Chi catheter drainage Change in mental status metabolic encephalopathy acute on chronic. History of BPH indwelling Chi catheter Coude catheter now History of recent fall Gait dysfunction Advanced dementia possibly temporoparietal increased WBC Full code Discharge disposition. This patient be discharged to ECF in a stable condition with a guarded prognosis. Total time taken 35 minutes. Hospital course. This 87-year-old gentleman with a past medical history of severe dementia was admitted with the acute UTI with sepsis. Patient also had features of a non-ST segment elevation myocardial infarction.. Patient had multiple complex medical issues during the hospitalization as detailed above. Patient was treated in conjunction with the cardiology and pulmonology. Patient did improve significantly. Prognosis remains guarded because of the multiple complex medical issues as detailed above. On exam vitals stable. Patient is confused. Cardio S1 and S2 normal. Respiratory system few rhonchi.. Abdomen soft nontender. Nervous system diffusely weak. Patient Condition at Discharge: Stable Plan - Discharge Summary Discharge Rx Participant: No New Discharge Prescriptions: New Multivitamins, Thera [Multivitamin] 1 tab PO DAILY #30 tablet Digoxin [Lanoxin] 125 mcg PO DAILY tab Folic Acid 1 mg PO DAILY #30 tablet Metoprolol Tartrate [Lopressor] 12.5 mg PO TID tab Pantoprazole [Protonix] 40 mg PO AC-BRKFST tablet. risperiDONE [RisperDAL] 0.125 mg PO HS #30 tab Thiamine [Vitamin B-1] 100 mg PO DAILY #30 tablet Cefuroxime Axetil [Ceftin] 500 mg PO BID #6 tab Continue Lactobacillus Acidophilus [Acidophilus] 1 tab PO BID Sennosides-Docusate Sodium [Senokot-S] 1 tab PO DAILY@0800 Donepezil [Aricept] 5 mg PO HS@2000 Tamsulosin HCl [Flomax] 0.4 mg PO DAILY@0700 Mag Hydrox/Al Hydrox/Simeth [Maalox] 30 ml PO Q6H PRN PRN Reason: Heartburn Acetaminophen Tab [Tylenol] 650 mg PO Q4H PRN PRN Reason: Pain Or Fever > 100.5 Memantine [Namenda] 10 mg PO DAILY@2100 Magnesium Hydroxide [Milk of Magnesia] 2,400 mg PO DAILY PRN PRN Reason: Constipation Bethanechol [Urecholine] 25 mg PO TID@0700,1200,1700 Aspirin EC [Ecotrin Low Dose] 81 mg PO DAILY@0700 Discontinued Sulfamethox-Tmp 800-160Mg [Bactrim DS 800-160 mg] 1 tab PO Q12HR Metoprolol Tartrate [Lopressor] 25 mg PO BID@0700,1700 Famotidine [Pepcid] 20 mg PO BID@0700,1700 Discharge Medication List Acetaminophen Tab [Tylenol] 650 mg PO Q4H PRN 01/07/18 [History] Aspirin EC [Ecotrin Low Dose] 81 mg PO DAILY@0700 01/07/18 [History] Bethanechol [Urecholine] 25 mg PO TID@0700,1200,1700 01/07/18 [History] Donepezil [Aricept] 5 mg PO HS@199901/07/18 [History] Lactobacillus Acidophilus [Acidophilus] 1 tab PO BID 01/07/18 [History] Mag Hydrox/Al Hydrox/Simeth [Maalox] 30 ml PO Q6H PRN 01/07/18 [History] Magnesium Hydroxide [Milk of Magnesia] 2,400 mg PO DAILY PRN 01/07/18 [History] Memantine [Namenda] 10 mg PO DAILY@2100 01/07/18 [History] Sennosides-Docusate Sodium [Senokot-S] 1 tab PO DAILY@0800 01/07/18 [History] Tamsulosin HCl [Flomax] 0.4 mg PO DAILY@0700 01/07/18 [History] Cefuroxime Axetil [Ceftin] 500 mg PO BID #6 tab 01/12/18 [Rx] Digoxin [Lanoxin] 125 mcg PO DAILY tab 01/12/18 [Rx] Folic Acid 1 mg PO DAILY #30 tablet 01/12/18 [Rx] Metoprolol Tartrate [Lopressor] 12.5 mg PO TID tab 01/12/18 [Rx] Multivitamins, Thera [Multivitamin] 1 tab PO DAILY #30 tablet 01/12/18 [Rx] Pantoprazole [Protonix] 40 mg PO AC-BRKFST tablet. 01/12/18 [Rx] Thiamine [Vitamin B-1] 100 mg PO DAILY #30 tablet 01/12/18 [Rx] risperiDONE [RisperDAL] 0.125 mg PO HS #30 tab 01/12/18 [Rx] Follow up Appointment(s)/Referral(s): pcp, [Other] - 1 Week
[2018-01-14 11:35] VITALS: BP 104/58; PULSE 90; TEMP 96.9
--- NOTE | 2018-01-14 16:16 | P.PN ---
Subjective Progress Note Date: 01/13/18 Progress note being dictated for Dr. Jovel. Interval History: This 87-year-old gentleman with a past medical history of severe dementia was admitted with the acute UTI with sepsis, features of a non-ST segment elevation myocardial infarction. Patient had multiple complex medical issues during the hospitalization as detailed above. Patient was treated in conjunction with the cardiology and pulmonology. Significant clinical improvement. No overnight events. Awaiting discharge to subacute rehab. Objective - Vital Signs Vital signs: Vital Signs Temp 98.4 F 01/13/18 16:00 Pulse 77 01/13/18 16:00 Resp 18 01/13/18 16:00 BP 126/60 01/13/18 16:00 Pulse Ox 92 L 01/13/18 16:00 Intake & Output 01/12/18 01/13/18 01/13/18 18:59 06:59 18:59 Intake Total 1386.2 322.5 0 Output Total 2200 1800 Balance -813.8 -1477.5 0 Weight 79.5 kg 78.5 kg Intake: Intake, IV Titration 1011.2 322.5 Amount Mvi, Adult No.4 with Vit 1011.2 322.5 K 10 ml Thiamine 100 mg Folic Acid 1 mg In Sodium Chloride 0.9% 1,000 ml @ 50 mls/hr IV .BY DURATION [facility] Rx#: [id number] Oral 375 0 Output: Urine 2200 1800 Other: Voiding Method Indwelling Catheter Indwelling Catheter Indwelling Catheter - Exam PHYSICAL EXAM: VITAL SIGNS: As above GENERAL: Sitting up in bed, no acute distress, pleasantly confused HEENT: Conjunctivae normal. eyes normal. Oral mucosa moist NECK: No JVD. No thyroid enlargement. No LNs CARDIOVASCULAR: S1, S2 muffled. No murmur RESPIRATION: Breath sounds diminished in the bases. No rhonchi or crackles. No bronchial breathing. ABDOMEN: Soft, nontender . No guarding. no masses palpable. Bowel sounds heard. LEGS: No edema. no swelling PSYCHIATRY: Alert and oriented -1, mood and affect normal. NERVOUS SYSTEM: Cranial N 2-12 grossly normal. Moves all 4 limbs. Diffuse weakness No focal deficit Lymphatic system. No LN neck axilla or groin. - Labs CBC & Chem 7: 01/13/18 05:54 01/13/18 05:54 Labs: Abnormal Lab Results - Last 24 Hours (Table) 01/13/18 01/13/18 Range/Units 05:54 05:54 WBC 11.2 H (3.8-10.6) k/uL RBC 4.25 L (4.30-5.90) m/uL Hgb 12.7 L (13.0-17.5) gm/dL Hct 38.1 L (39.0-53.0) % Neutrophils # 7.8 H (1.3-7.7) k/uL BUN 8 L (9-20) mg/dL Calcium 8.3 L (8.4-10.2) mg/dL Microbiology - Last 24 Hours (Table) 01/07/18 13:20 Blood Culture - Final Blood No Growth after 144 hours 01/07/18 23:52 Blood Culture - Preliminary Blood No Growth after 120 hours Assessment and Plan Assessment: Acute UTI with sepsis with the possible severe sepsis and hypotension present on admission. [place] acute non-ST segment elevation myocardial infarction with nonspecific ST-T changes: Contemplating to Hypotension with the troponin 0.63 80 fibrillation paroxysmal Complicated UTI related to Chi catheter Urinary obstruction status post Chi catheter drainage Change in mental status metabolic encephalopathy acute on chronic. History of BPH indwelling Chi catheter Coude catheter now History of recent fall Gait dysfunction Advanced dementia possibly temporoparietal Plan: Continue on current medication regime ,monitoring and symptomatic treatment. OT evaluation pending. Discharge planning in progress for [facility], pending authorization. The impression and plan of care has been dictated as directed. : I performed a history and examination of this patient, discussed the same with the dictator. I agree with the dictator's note ,documented as a scribe. Any additional findings or plans will be noted.
--- NOTE | 2018-01-15 12:58 | CDI ---
Documentation Clarification Form Date: 01/15/18 From: ANAND Benedict Phone: If you have question, contact Adelaida Samuels Nurse Technician at [phone] -F 8:30 am to 6pm Admit Date: 01/07/2018 11:49:00 AM Patient Name: Ton Mcgraw Visit Number: [id number] Discharge Date: 01/14/18 ATTENTION: The Clinical Documentation Specialists (CDI) and [facility] Coding Staff appreciate your assistance in clarifying documentation. Please respond to the clarification below the line at the bottom and electronically sign. The CDI & [facility] Coding staff will review the response and follow-up if needed. Please note: Queries are made part of the Legal Health Record. If you have any questions, please contact the author of this message via ITS. Dr. Eamon Jovel Conflicting documentation has been found in the medical record. Troponin is elevated on admission and the plan is to rule out acute non ST elevation myocardial infarction with nonspecific ST-T changes. Cardiology is consulted on 01/07 and impression is: borderline toponin elevation, not suggestive of myocardial infarction. Discharge summary final diagnosis states: Acute non-ST segment elevation myocardial infarction with nonspecific ST-T changes., contemplating to hypotension with troponin 0.63. Clarification regarding this conflicting documentation is needed for proper reporting purposes. Please clarify: NSTEMI ruled out NSTEMI ruled in Other (please specify) Clinically unable to determine MTDD
== END 2018-01-14 12:10 | DRG 280 ==
LOC: 6SEL 11:49 → 6ICU 01-08 01:02 → 6SEL 01-09 18:12
PROVIDERS: ADMIT Hospitalist; ATTEND Hospitalist
DX: I21.4 Non-ST elevation (NSTEMI) myocardial infarction (principal); A41.9 Sepsis, unspecified organism; G93.41 Metabolic encephalopathy; R65.21 Severe sepsis with septic shock; T83.511A Infection and inflammatory reaction due to indwelling urethral catheter, initial encounter; N13.8 Other obstructive and reflux uropathy; N39.0 Urinary tract infection, site not specified; N40.1 Benign prostatic hyperplasia with lower urinary tract symptoms; R33.8 Other retention of urine; F03.90 Unspecified dementia, unspecified severity, without behavioral disturbance, psychotic disturbance, mood disturbance, and anxiety; K21.9 Gastro-esophageal reflux disease without esophagitis; R26.9 Unspecified abnormalities of gait and mobility; I48.0 Paroxysmal atrial fibrillation; Z91.81 History of falling; Z79.82 Long term (current) use of aspirin; Z79.899 Other long term (current) drug therapy; Z87.440 Personal history of urinary (tract) infections
CPT/HCPCS: 70450; 71045; 80048; 80053; 81001; 82550; 82553; 83605; 83735; 84100; 84484; 85025; 87040; 87086; 93306; 94760; 95819